=== PATIENT | male | born 1950 | race Caucasian/White ===

== ENCOUNTER 2016-08-18 01:20 | Observation (INO) | payer OTHER ==
[2016-08-18] VITALS (10 sets, daily range): BP systolic 121–189; BP diastolic 59–96; PULSE 46–72; RESP 16–22; TEMP 97.4–98.8; O2SAT 96–98
[~2016-08-18] VITALS: Ht 180.3 cm; Wt 78.0 kg
[2016-08-18] MEDS ORDERED: ASPIRIN 81 MG CHEW TAB PO ONE (03:00)
[2016-08-18] MEDS ORDERED: KETOROLAC TROMETHAMINE 30 MG/ML (IVP) VIAL IV PUSH ONE (03:00)
[2016-08-18] MEDS ORDERED: NITROGLYCERIN 0.4 MG SL 25 TABS/BTL SL ONE (03:00)
[2016-08-18] MEDS ORDERED: SODIUM CHLORIDE 0.9% FLUSH 10 ML FLUSH IVF PRN ×2 (03:00→05:15)
[2016-08-18] MEDS ORDERED: ATEN25TA PO (03:07)
[2016-08-18] MEDS ORDERED: ASPI81CH CHEW (03:07)
[2016-08-18] MEDS ORDERED: METF1000 PO (03:07)
[2016-08-18] MEDS ORDERED: LISI-515 PO (03:07)
--- NOTE | 2016-08-18 03:28 | PD ---
HPI Chief Complaint: Hypertension Time Seen by Provider: 02:57 Travel History International Travel<30 days: No Contact w/Intl Traveler<30days: No Traveled to known affect area: No History of Present Illness HPI 65-year-old male presents to the emergency department for complaint of chronic back pain neck pain chest pain and noting this morning left upper extremity pain. Patient has history of chronic back injury and neck injury with chronic pain syndrome. Patient also has history of hypertension CAD and previous stent placement. Patient states [facility] and they have told him to wear a c-collar for his neck pain. Patient denies any new upper extremity or lower extremity numbness tingling or weakness. No bladder or bowel dysfunction or saddle anesthesia. Patient does not have any chest pain at this time and left arm pain that was present earlier prior to arrival to the emergency department has resolved spontaneously. Patient does take aspirin daily. Patient is diabetic. Patient's had no injury or recent fall. Patient reports the majority of his pain is in the mid to lower back and worsens with movement. Patient states his pain is the worst when he is sitting upright while he is driving a vehicle. Patient states some of these pains are new. Patient reportedly was encouraged to come to the emergency department by the [facility] for his complaints. Patient has taken no medication for her symptom relief. [facility] Past Medical History Narrative Medical CAD OH cardiac catheterization with stent hypertension diabetes chronic back pain cholecystectomy tobaccoism; nursing notes reviewed Cardiac Catheterization: Yes (X2) Diabetes: Yes Patient Takes Glucophage: Yes (6/1 AM) Hypertension: Yes Medical other: Yes (CHRONIC BACK PROBLEMS) Immunizations Current: Yes Myocardial Infarction: Yes Past Surgical History Cholecystectomy: Yes Neurologic Surgery: Yes (L5 L6) Social History Alcohol Use: No Tobacco Use: Yes Substance Use: No Allergies-Medications (Allergen,Severity, Reaction): Coded Allergies: No Known Allergies (Unverified , 08/18/16) Reported Meds & Prescriptions Reported Meds & Active Scripts Active Reported Aspirin 81 Mg Chew 81 Mg CHEW DAILY Atenolol 25 Mg Tab 12.5 Mg PO DAILY Lisinopril 20 Mg Tab 20 Mg PO DAILY Metformin (Metformin HCl) 1,000 Mg Tab 1,000 Mg PO BIDPC With meals Review of Systems Except as stated in HPI: all other systems reviewed are Neg General / Constitutional: No: Fever, Chills HENT: No: Congestion Cardiovascular: Positive: Chest Pain or Discomfort, No: Diaphoresis, Syncope, Dyspnea on exertion, Edema Respiratory: No: Shortness of Breath Gastrointestinal: No: Nausea, Abdominal Pain Genitourinary: No: Flank Pain Musculoskeletal: Positive: Myalgias, Arthralgias, Pain, No: Limited ROM, Edema Skin: No Rash Neurologic: No: Weakness, Dizziness, Syncope, Focal Abnormalities, Coordination Problem, Paresthesia Psychiatric: No: Anxiety Hematologic/Lymphatic: No: Easy Bruising Physical Exam Narrative GENERAL: Well-developed well-nourished male in no acute distress no respiratory distress; GCS 15 SKIN: Warm and dry. HEAD: Atraumatic. Normocephalic. EYES: Pupils equal and round. No scleral icterus. No injection or drainage. ENT: No nasal bleeding or discharge. Mucous membranes pink and moist. NECK: Trachea midline. No JVD. CARDIOVASCULAR: Regular rate and rhythm. Radial and dorsalis pedis pulses 2+ to palpation. RESPIRATORY: No accessory muscle use. Clear to auscultation. Breath sounds equal bilaterally. GASTROINTESTINAL: Abdomen soft, non-tender, nondistended. Hepatic and splenic margins not palpable. MUSCULOSKELETAL: Extremities without clubbing, cyanosis, or edema. No obvious deformities. Tenderness to palpation along the lower thoracic and upper lumbar spine without bony step-off. Negative straight leg raising. No flank pain bilaterally. NEUROLOGICAL: Awake and alert. No obvious cranial nerve deficits. Motor grossly within normal limits. Five out of 5 muscle strength in the arms and legs. Normal speech. PSYCHIATRIC: Appropriate mood and affect; insight and judgment normal. Data Data Last Documented VS Vital Signs Date Time Temp Pulse Resp B/P Pulse Ox O2 Delivery O2 Flow Rate FiO2 08/18/16 04:17 16 08/18/16 02:24 58 189/88 98 Room Air 08/18/16 01:21 98.8 Orders Electrocardiogram (08/18/16 ) Electrocardiogram (08/18/16 02:58) Ckmb (Isoenzyme) Profile (08/18/16 02:58) Complete Blood Count With Diff (08/18/16 02:58) Comprehensive Metabolic Panel (08/18/16 02:58) Magnesium (Mg) (08/18/16 02:58) Prothrombin Time / Inr (Pt) (08/18/16 02:58) Act Partial Throm Time (Ptt) (08/18/16 02:58) Troponin I (08/18/16 02:58) Lipase (08/18/16 02:58) Chest, Single Ap (08/18/16 02:58) Ecg Monitoring (08/18/16 02:58) Bilateral Bp Monitoring (08/18/16 02:58) Iv Access Insert/Monitor (08/18/16 02:58) Oximetry (08/18/16 02:58) Oxygen Administration (08/18/16 02:58) Aspirin Chew (Aspirin Chew) (08/18/16 03:00) Sodium Chloride 0.9% Flush (Ns Flush) (08/18/16 03:00) Nitroglycerin Sl (Nitrostat Sl) (08/18/16 03:00) Sodium Chlor 0.9% 1000 Ml Inj (Ns 1000 M (08/18/16 03:00) Spine, Thoracic-Ap/Lat/Sw(3vw) (08/18/16 ) Ketorolac Inj (Toradol Inj) (08/18/16 03:00) Labs Laboratory Tests Test 08/18/16 03:00 White Blood Count 11.3 TH/MM3 Red Blood Count 4.52 MIL/MM3 Hemoglobin 14.0 GM/DL Hematocrit 41.5 % Mean Corpuscular Volume 91.8 FL Mean Corpuscular Hemoglobin 31.0 PG Mean Corpuscular Hemoglobin 33.8 % Concent Red Cell Distribution Width 14.5 % Platelet Count 200 TH/MM3 Mean Platelet Volume 10.9 FL Neutrophils (%) (Auto) 66.4 % Lymphocytes (%) (Auto) 23.0 % Monocytes (%) (Auto) 8.2 % Eosinophils (%) (Auto) 1.9 % Basophils (%) (Auto) 0.5 % Neutrophils # (Auto) 7.5 TH/MM3 Lymphocytes # (Auto) 2.6 TH/MM3 Monocytes # (Auto) 0.9 TH/MM3 Eosinophils # (Auto) 0.2 TH/MM3 Basophils # (Auto) 0.1 TH/MM3 CBC Comment DIFF FINAL Differential Comment Prothrombin Time 10.5 SEC Prothromb Time International 1.0 RATIO Ratio Activated Partial 27.3 SEC Thromboplast Time Sodium Level 143 MEQ/L Potassium Level 4.0 MEQ/L Chloride Level 107 MEQ/L Carbon Dioxide Level 27.5 MEQ/L Anion Gap 9 MEQ/L Blood Urea Nitrogen 17 MG/DL Creatinine 0.81 MG/DL Estimat Glomerular Filtration 96 ML/MIN Rate Random Glucose 102 MG/DL Calcium Level 8.6 MG/DL Magnesium Level 2.3 MG/DL Total Bilirubin 0.2 MG/DL Aspartate Amino Transf 13 U/L (AST/SGOT) Alanine Aminotransferase 20 U/L (ALT/SGPT) Alkaline Phosphatase 69 U/L Total Creatine Kinase 88 U/L Troponin I 0.02 NG/ML Total Protein 6.9 GM/DL Albumin 3.3 GM/DL Lipase 141 U/L [facility] Medical Decision Making Medical Screen Exam Complete: Yes Emergency Medical Condition: Yes Medical Record Reviewed: Yes Interpretation(s) EKG: Sinus bradycardia rate [address] elevation or injury pattern change noted Differential Diagnosis Back pain, degenerative disc disease,HNP, chest pain, ACS, OH, uncontrolled hypertension, musculoskeletal pain, dissection, abdominal aortic aneurysm, UTI, ; no findings to suggest cauda equina syndrome Narrative Course Patient with long-standing history of chronic pain syndrome and cardiac disease with hypertension; patient administered aspirin and sublingual nitroglycerin times one maintenance IV fluids normal saline Patient administered Toradol 30 mg IV Patient resting comfortably waiting for lab results Patient reports after medication his pain is significantly reduced and voicing no complaints Lab values found to be grossly within normal range however in view of patient's history of CAD and report that this morning he did have an episode of chest pain with left upper extremity pain will admit to chest pain center per chest pain center protocol; patient has noted to have episodes of sinus bradycardia 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 Patient does take atenolol. Patient reports he has not had any change in the dosage of his atenolol. Physician Communication Physician Communication discussed with [facility] service --> [facility] Diagnosis Primary Impression: Chest pain Qualified Code: R07.2 - Precordial pain Additional Impression: Chronic back pain Qualified Code: M54.6 - Chronic midline thoracic back pain Admitting Information Admitting Physician Requests: Gabriela Haider MD Aug 18, 2016 03:28
[2016-08-18] MEDS: SODIUM CHLOR 0.9% 1000 ML INJ 1,000 ML IV SCH ×2 (03:33→13:00)
[2016-08-18 03:39] LABS: AUTOMATED NEUTROPHIL # 7.5 TH/MM3 (1.8-7.7); BASOPHIL # 0.1 TH/MM3 (0-0.2); BASOPHIL % 0.5 % (0.0-2.0); EOSINOPHIL # 0.2 TH/MM3 (0-0.4); EOSINOPHIL % 1.9 % (0.0-4.0); HEMATOCRIT 41.5 % (39.0-51.0); HEMO FLAGS DIFF FINAL; LYMPHOCYTE # 2.6 TH/MM3 (1.0-4.8); MEAN CELL VOLUME 91.8 FL (80.0-100.0); MEAN CORPUSCULAR HGB CONC 33.8 % (32.0-36.0); MONO % 8.2 % (0.0-8.0); NEUT % 66.4 % (16.0-70.0); PLATELET COUNT 200 TH/MM3 (150-450); RED BLOOD COUNT 4.52 MIL/MM3 (4.50-5.90); RED CELL DISTRIBUTION WIDTH 14.5 % (11.6-17.2); WHITE BLOOD COUNT 11.3 TH/MM3 (4.0-11.0)
[2016-08-18 03:49] LABS: APTT (PATIENT) 27.3 SEC (24.3-30.1); PROTHROMBIN TIME - PATIENT 10.5 SEC (9.8-11.6)
--- NOTE | 2016-08-18 04:01 | RADRPT ---
EXAM DATE/TIME: 08/18/2016 03:22 [facility] COMPARISON: No previous studies available for comparison. INDICATIONS : Chronic pain and spasms to upper back and neck. MEDICAL HISTORY : Hypertension. Myocardial infarction. Diabetes mellitus type II. Cardiac cath SURGICAL HISTORY : Cholecystectomy. ENCOUNTER: Initial ACUITY: 1 day PAIN SCORE: 6/10 LOCATION: Bilateral chest FINDINGS: A single view of the chest demonstrates the lungs to be symmetrically aerated without evidence of mas s, infiltrate or effusion. The cardiomediastinal contours are unremarkable. Osseous structures are intact. CONCLUSION: 1. No acute cardiopulmonary disease. Artis Madera MD on August 18, 2016 at 3:59 Board Certified Radiologist. This report was verified electronically.
--- NOTE | 2016-08-18 04:02 | RADRPT ---
EXAM DATE/TIME: 08/18/2016 03:23 [facility] COMPARISON: No previous studies available for comparison. INDICATIONS : Chronic pain and spasms to upper back and neck. MEDICAL HISTORY : Hypertension. Diabetes mellitus type II. Myocardial infarction. Cardiac cath SURGICAL HISTORY : Cholecystectomy. ENCOUNTER: Initial ACUITY: 1 day PAIN SCORE: 6/10 LOCATION: Bilateral Thoracic spine FINDINGS: The vertebral bodies are normal in alignment on the lateral view. There is multilevel degenerative ch marlys throughout the spine. There is no evidence of acute fracture. Bony mineralization is normal. CONCLUSION: 1. Mild degenerative changes as described above. There is no evidence of acute fracture. Artis Madera MD on August 18, 2016 at 4:00 Board Certified Radiologist. This report was verified electronically.
[2016-08-18 04:06] LABS: ALT (GPT) 20 U/L (12-78); ANION GAP 9 MEQ/L (5-15); AST (GOT) 13 U/L (15-37); BICARBONATE 27.5 MEQ/L (21.0-32.0); BLOOD UREA NITROGEN 17 MG/DL (7-18); CHLORIDE 107 MEQ/L (98-107); GLOMERULAR FILTRATION RATE 96 ML/MIN (>89); MAGNESIUM 2.3 MG/DL (1.5-2.5); SODIUM (NA) 143 MEQ/L (136-145)
[2016-08-18 04:10] LABS: ALKALINE PHOSPHATASE 69 U/L (45-117); TOTAL BILIRUBIN ADULT 0.2 MG/DL (0.2-1.0)
[2016-08-18 04:11] LABS: CREATINE KINASE 88 U/L (39-308)
[2016-08-18] MEDS ORDERED: NITROGLYCERIN 0.4 MG SL 25 TABS/BTL SL PRN (05:15)
[2016-08-18] MEDS ORDERED: SODIUM CHLORIDE 0.9% FLUSH 10 ML FLUSH PRN (05:15)
[2016-08-18] MEDS ORDERED: ACETAMINOPHEN 500 MG CPLT PO PRN (07:45)
[2016-08-18] MEDS ORDERED: ONDANSETRON HCL 4 MG/2 ML VIAL IV PRN (07:45)
[2016-08-18 07:49] LABS: CREATINE KINASE 71 U/L (39-308)
[2016-08-18] MEDS ORDERED: SODIUM CHLORIDE 0.9% FLUSH 10 ML FLUSH SCH (09:00)
[2016-08-18] MEDS ORDERED: SODIUM CHLORIDE 0.9% FLUSH 10 ML FLUSH IV FLUSH SCH (09:00)
[2016-08-18] MEDS ORDERED: ASPIRIN 325 MG TAB PO SCH (09:00)
--- NOTE | 2016-08-18 09:21 | HHI.HP ---
HPI Primary Care Physician [facility] Chief Complaint Worsening chronic back/neck pain History of Present Illness 65-year-old male with known coronary artery disease including 4 cardiac stents , diabetes, and chronic neck and back pain presents to emergency room for worsening chronic pain associated with left arm pain. Chronic back/neck pain began to worsen Sunday, he called [facility] day instructed him to go to the emergency room. He did not decide to come to the emergency room for further evaluation until early this morning. Describes back pain as "a heavy manhole cover is sitting on my back and under both shoulder blades." Breathing makes pain worse described as knives and stabbing when taking deep breath. No associated symptoms of nausea, vomiting, or diaphoresis. No known precipitating factors. Relieving factors with a "shot given in the emergency room" states after approximately 30-40 minutes pain improved. Left arm pain began while in ER waiting room. Location under her left arm from axillary area to elbow. Characterized as "hurting, not an ache or dull feeling." Left arm pain duration 30 minutes. He has not had any recent stress testing. Endorses situational stress regarding his who is ill. Also reports intermittent fluttering in chest episodes generally last 1 hour and occur while sitting. No known precipitating or relieving factors. No associated symptoms. Review of Systems General: Increased fatigue over past few months, relates this to taking care of his . No weakness, fever, chills, recent illness, or change in appetite HEENT: No CANAS, no vision changes CV: No CP or pressure. Endorses few weeks of heart "fluttering." Episodes generally last 1 hour and occur while sitting. Denies any concurrent lightheadedness, nausea, or loss of consciousness. RESP: No SOB, cough, wheeze, recent URI, or history of asthma. GI: No nausea, vomiting, bowel changes, diarrhea, constipation, pain. : No dysuria, urgency, frequency, no incontinence EXT: No lower leg edema, no paraesthesias, no weakness MS: Chronic back and neck pain, unable to move neck to right side chronic and unchanged. He has been encouraged to wear a neck collar provided by OR. NEURO: No change in difficulty with balance, LOC, or motor/sensory deficits PSYCH: No anxiety, depression. Endorses situational stress regarding his who is ill and is experiencing memory problems. SKIN: No rashes, no concerning lesions Past Family Social History Allergies: Coded Allergies: No Known Allergies (Unverified , 08/18/16) Past Medical History CAD, cardiac stents 4, chronic back and neck pain, diabetic Past Surgical History Cholecystectomy, L56 lumbar surgery Reported Medications Active Reported Aspirin 81 Mg Chew 81 Mg CHEW DAILY Atenolol 25 Mg Tab 12.5 Mg PO DAILY Lisinopril 20 Mg Tab 10 Mg PO DAILY Metformin (Metformin HCl) 1,000 Mg Tab 1,000 Mg PO BIDPC With meals Active Ordered Medications Current Medications Medications (Trade) Dose Ordered Sig/Cinthia Route Start Time Stop Time Status Last Admin (NS 1000 ml Inj) 1,000 ml @ 100 mls/hr Q10H IV 08/18/16 03:00 08/18/16 03:33 (NS Flush) 2 ml BID IV FLUSH 08/18/16 09:00 (NS Flush) 2 ml UNSCH PRN IVF 08/18/16 05:15 (Nitrostat Sl) 0.4 mg Q5M PRN SL 08/18/16 05:15 (Aspirin) 325 mg DAILY PO 08/18/16 09:00 08/18/16 09:12 (Tylenol) 500 mg Q4H PRN PO 08/18/16 07:45 (Zofran Inj) 4 mg Q6H PRN IV 08/18/16 07:45 Family History Father experienced "heart problems in his early 40s with total of 13 heart attacks." Social History Known diabetes. No known hypertension or hyperlipidemia. States he was taking a statin years ago although physicians have taken him off. He tolerated statin therapy well. Current smoker, smokes half pack daily for most of his adult life. Denies any alcohol or illegal drug use. Endorses active lifestyle, staying busy throughout day. No regular cardiovascular aerobic exercise. Past cardiac testing No recent stress testing. Has not seen stylist assistant since 2014. He has moved from [place] at that time. Total of times for cardiac stents. First cardiac catheterization 2003 states "2 stents placed in the front of my heart." 2009 second cardiac catheterization with [address] "back part of my heart." Symptoms of prior heart attack included chest tightness, short of breath, couldn 't talk, and a choking feeling. Physical Exam Vital Signs Vital Signs Date Time Temp Pulse Resp B/P Pulse Ox O2 Delivery O2 Flow Rate FiO2 08/18/16 07:58 97.4 08/18/16 07:53 46 20 141/79 96 08/18/16 07:46 98 21 08/18/16 06:37 49 08/18/16 05:20 97 08/18/16 05:12 97 Room Air 08/18/16 05:00 50 17 121/59 96 Room Air 08/18/16 04:17 16 08/18/16 04:17 16 08/18/16 04:00 50 22 132/73 97 Room Air 08/18/16 02:24 58 16 189/88 98 Room Air 08/18/16 01:21 98.8 72 16 185/96 98 Room Air Physical Exam GENERAL: Alert WN, WD, NAD, pleasant, occasional male HEAD: NC, AT NECK: Supple, no masses, trachea midline CV: RRR, without murmur, rub, gallop, no JVD, S1-S2 no S3-S4. No carotid bruits. RESP: Expiratory wheeze throughout bilateral, no crackles, rhonchi, symmetrical chest rise, nonlabored, able to speak in full sentences ABD: Soft, NT, ND, no masses, positive bowel tones BACK: No scoliosis EXT: Pulses +24, no dependent edema MS: Normal tone 4 extremities, nontender, no obvious deformities, limited range of motion when moving neck to right side NEURO: CN II through CN XII grossly intact, motor strength 5/5, gait WNL PSYCH: A+O 3, pleasant affect, appropriate speech, appropriate mood and affect , insight and judgment SKIN: Normal turgor, normal texture, no lesions, no rashes, brisk cap refill, even hair distribution Laboratory Laboratory Tests Test 08/18/16 08/18/16 03:00 06:45 White Blood Count 11.3 Red Blood Count 4.52 Hemoglobin 14.0 Hematocrit 41.5 Mean Corpuscular Volume 91.8 Mean Corpuscular Hemoglobin 31.0 Mean Corpuscular Hemoglobin 33.8 Concent Red Cell Distribution Width 14.5 Platelet Count 200 Mean Platelet Volume 10.9 Neutrophils (%) (Auto) 66.4 Lymphocytes (%) (Auto) 23.0 Monocytes (%) (Auto) 8.2 Eosinophils (%) (Auto) 1.9 Basophils (%) (Auto) 0.5 Neutrophils # (Auto) 7.5 Lymphocytes # (Auto) 2.6 Monocytes # (Auto) 0.9 Eosinophils # (Auto) 0.2 Basophils # (Auto) 0.1 CBC Comment DIFF FINAL Differential Comment Prothrombin Time 10.5 Prothromb Time International 1.0 Ratio Activated Partial 27.3 Thromboplast Time Sodium Level 143 Potassium Level 4.0 Chloride Level 107 Carbon Dioxide Level 27.5 Anion Gap 9 Blood Urea Nitrogen 17 Creatinine 0.81 Estimat Glomerular Filtration 96 Rate Random Glucose 102 Calcium Level 8.6 Magnesium Level 2.3 Total Bilirubin 0.2 Aspartate Amino Transf 13 (AST/SGOT) Alanine Aminotransferase 20 (ALT/SGPT) Alkaline Phosphatase 69 Total Creatine Kinase 88 71 Troponin I 0.02 LESS THAN 0.02 Total Protein 6.9 Albumin 3.3 Lipase 141 Result Diagram: 08/18/16 0300 08/18/16 0300 Imaging Last Impressions Chest X-Ray 08/18/16 0258 Signed Impressions: Service Date/Time: Thursday, August 18, 2016 03:22 - CONCLUSION: 1. No acute cardiopulmonary disease. Artis Madera MD Thoracic Spine X-Ray 08/18/16 0000 Signed Impressions: Service Date/Time: Thursday, August 18, 2016 03:23 - CONCLUSION: 1. Mild degenerative changes as described above. There is no evidence of acute fracture. Artis Madera MD Course EKGs Normal sinus bradycardia, normal axis, no ST or T-segment changes Assessment and Plan Assessment and Plan #1 Chest pain-admitted to chest pain center. Will be ruled out with 3 sets of EKGs and cardiac enzymes. Chemical stress test to follow with ruled out. Will be seen and evaluated by Dr. Jono Trejo. #2 History of CAD-continue aspirin and atenolol. Discussed importance of statin therapy for cardiac preventative properties, encouraged him to speak with PCP regarding restarting statin therapy. #3 Tobacco use-counseled on risk of tobacco use. Encouraged him to quit smoking. #4 Type 2 Diabetes-continue metformin #5 Chronic pain-continue to follow up with PCP at OR #6 Hypertension-continue lisinopril and continue to monitor. Liliam Singleton Aug 18, 2016 09:21
[2016-08-18] MEDS ORDERED: PILL SPLITTER OTHER PRN (09:30)
[2016-08-18 10:20] LABS: CREATINE KINASE 54 U/L (39-308)
[2016-08-18] MEDS ORDERED: REGADENOSON INJ 0.4 MG/5 ML SYR ONE (11:47)
--- NOTE | 2016-08-18 12:41 | TR ---
Date Performed: 08/18/2016 Time Performed: 11:51:11 DOCTOR: Jono Trejo DRUG LIST: CLINICAL HISTORY: REASON FOR TEST: REASON FOR ENDING: OBSERVATION: CONCLUSION: Lexiscan stress test was performed under standard four minute protocol. Radionuclid e was injected one minute prior to ending the test. No electrocardiographic abormalities were present to suggest ischemia. Nuclear imaging and interpretation are pending. COMMENTS:
--- NOTE | 2016-08-18 12:43 | EKG ---
Date Performed: 08/18/2016 Time Performed: 02:21:56 PTAGE: 65 years EKG: SINUS BRADYCARDIA BORDERLINE ECG NO PREVIOUS TRACING DOCTOR: Jono Trejo Interpretating Date/Time 08/18/2016 12:42:04
--- NOTE | 2016-08-18 12:43 | EKG ---
Date Performed: 08/18/2016 Time Performed: 06:40:51 PTAGE: 65 years EKG: SINUS BRADYCARDIA PROLONGED QT INTERVAL ABNORMAL ECG NO PREVIOUS TRACING DOCTOR: Jono Trejo Interpretating Date/Time 08/18/2016 12:41:32
--- NOTE | 2016-08-18 12:49 | EKG ---
Date Performed: 08/18/2016 Time Performed: 09:18:15 PTAGE: 65 years EKG: SINUS BRADYCARDIA PROLONGED QT INTERVAL ABNORMAL ECG PREVIOUS TRACING : 08/18/2016 06.40 Since previous tracing, no significant change noted DOCTOR: Jono Trejo Interpretating Date/Time 08/18/2016 12:47:49
--- NOTE | 2016-08-18 13:29 | RADRPT ---
EXAM DATE/TIME: 08/18/2016 11:07 [facility] COMPARISON: No previous studies available for comparison. INDICATIONS : Left chest pain radiating to left arm. Chronic back and neck pain. Angina. DOSE: 25.5 mCi Tc99m Myoview at stress. 8.8 mCi Tc99m Myoview at rest. 0.4 mg Lexiscan STRESS SYMPTOMS: None. EJECTION FRACTION: 47% MEDICAL HISTORY : Myocardial infarction. Diabetes mellitus type 2. Hypertension. SURGICAL HISTORY : Cholecystectomy. Coronary artery stent. ENCOUNTER: Initial ACUITY: 1 day PAIN SCALE: 6/10 LOCATION: Left chest TECHNIQUE: The patient underwent pharmacologic stress with infusion of prescribed dose. Continuous ECG tracing was monitored during stress. Gated SPECT imaging was performed after stress and conventional SPECT i maging was performed at rest. The examination was performed on a SPECT/CT scanner, both attenuation and non-corrected datasets were reviewed. FINDINGS: DISTRIBUTION: The maximum perfused segment at stress is in the inferior wall. PERFUSION STUDY: The pattern of perfusion at stress is within normal limits. GATED STUDY: There is intact wall motion and thickening without hypokinetic or dyskinetic segments. CONCLUSION: 1. Mild global hypokinesis with ejection fraction of 47%. 2. No reversible perfusion defects. No focal wall motion abnormalities. RISK CATEGORY: 2-Intermediate Risk. Hans Millard MD on August 18, 2016 at 13:25 Board Certified Radiologist. This report was verified electronically.
--- NOTE | 2016-08-18 14:24 | HHI.DCPOC ---
Discharge Care Plan Diagnosis: (1) Hypertension (2) Musculoskeletal chest pain (3) Hx of coronary artery disease (4) Chronic back pain Goals to Promote Your Health * To prevent worsening of your condition and complications * To maintain your health at the optimal level Directions to Meet Your Goals Take your medications as prescribed Follow your dietary instruction Follow activity as directed Keep your appointments as scheduled Take your immunizations and boosters as scheduled If your symptoms worsen call your PCP, if no PCP go to Urgent Care Center or Emergency Room Smoking is Dangerous to Your Health. Avoid second hand smoke Call the 24-hour hour crisis hotline for domestic abuse at Liliam Singleton Aug 18, 2016 14:24
[2016-08-18] MEDS ORDERED: metFORMIN HCL 500 MG TAB PO SCH (18:00)
[2016-08-19] MEDS ORDERED: ATENOLOL 25 MG TAB PO SCH (09:00)
== END 2016-08-18 15:02 | disposition home or self-care (01) ==
LOC: NEPC 01:20 → NEDA 05:06 → NEPGCP 06:34
DX: R07.9 Chest pain, unspecified (principal); I10 Essential (primary) hypertension; M54.9 Dorsalgia, unspecified; M79.602 Pain in left arm; G89.4 Chronic pain syndrome; I25.10 Atherosclerotic heart disease of native coronary artery without angina pectoris; M54.2 Cervicalgia; M54.6 Pain in thoracic spine; E11.9 Type 2 diabetes mellitus without complications; Z95.5 Presence of coronary angioplasty implant and graft; F17.210 Nicotine dependence, cigarettes, uncomplicated; Z79.84 Long term (current) use of oral hypoglycemic drugs
CPT/HCPCS: 71010; 72072; 78452; 80053; 82550; 83690; 83735; 84484; 85025; 85610; 85730; 93005; 93017; 96361; 96374; 99285; A9502; G0378; J1885; J2785; J7030

== ENCOUNTER 2017-02-02 12:29 | Inpatient (IN) | payer OTHER ==
[2017-02-02] VITALS (15 sets, daily range): BP systolic 137–227; BP diastolic 82–114; PULSE 58–112; RESP 16–36; TEMP 97.7–98.7; O2SAT 89–99
[~2017-02-02] VITALS: Ht 175.3 cm; Wt 80.6 kg
[~2017-02-02 12:29] MED LIST: ASPI-516 CHEW; ATEN25TA PO; LISI-515 PO; METF1000 PO
--- NOTE | 2017-02-02 12:45 | PD ---
HPI Chief Complaint: Respiratory Symptoms Time Seen by Provider: 12:40 Travel History International Travel<30 days: No Contact w/Intl Traveler<30days: No Traveled to known affect area: No History of Present Illness HPI Patient is a 66-year-old male presents emergency department for evaluation of shortness of breath. He states that his friend was recently diagnosed with shortness of breath and had to be life flighted to [facility] because he had swelling of his throat. He states he doesn't think that that happened to him. He does have a history of coronary artery disease and multiple stents placed. He states that his been short of breath for the past few hours and rapidly getting worse. Denies a history of congestive heart failure, denies a history of prolonged stasis. PFSH Past Medical History Cardiac Catheterization: Yes (X2, 4 stents) Cardiovascular Problems: Yes Diabetes: Yes Hypertension: Yes Immunizations Current: Yes Myocardial Infarction: Yes Past Surgical History Cholecystectomy: Yes Neurologic Surgery: Yes (L5 L6) Social History Alcohol Use: No Tobacco Use: Yes Substance Use: No Allergies-Medications (Allergen,Severity, Reaction): Coded Allergies: bee venom protein (honey bee) (Verified Allergy, Severe, Swelling, ) Reported Meds & Prescriptions Reported Meds & Active Scripts Active Reported Zoloft (Sertraline HCl) 25 Mg Tab 25 Mg PO DAILY Aspirin 81 Mg Chew 81 Mg CHEW DAILY Atenolol 25 Mg Tab 12.5 Mg PO DAILY Metformin (Metformin HCl) 1,000 Mg Tab 1,000 Mg PO BIDPC With meals Review of Systems Except as stated in HPI: all other systems reviewed are Neg Physical Exam Narrative GENERAL: Well-developed well-nourished, tachycardic and tachypneic. SKIN: Focused skin assessment warm/dry. HEAD: Atraumatic. Normocephalic. EYES: Pupils equal and round. No scleral icterus. No injection or drainage. ENT: No nasal bleeding or discharge. Mucous membranes pink and moist. NECK: Trachea midline. No JVD. CARDIOVASCULAR: Tachycardic with regular rhythm.. No murmur appreciated. 2+ bilateral equal pulses in all 4 extremities. RESPIRATORY: No accessory muscle use bibasilar rales. Breath sounds equal bilaterally. Tachypneic with increased work of breathing and some mild retractions. GASTROINTESTINAL: Abdomen soft, non-tender, nondistended. Hepatic and splenic margins not palpable. MUSCULOSKELETAL: No obvious deformities. No clubbing. No cyanosis. No edema. NEUROLOGICAL: Awake and alert. No obvious cranial nerve deficits. Motor grossly within normal limits. Normal speech. PSYCHIATRIC: Appropriate mood and affect; insight and judgment normal. Data Data Last Documented VS Vital Signs Date Time Temp Pulse Resp B/P (MAP) Pulse Ox O2 Delivery O2 Flow Rate FiO2 02/02/17 14:20 58 16 140/83 (102) 93 BiPAP 02/02/17 13:20 50 02/02/17 13:00 4.50 02/02/17 12:32 98.0 Orders Orders Electrocardiogram (02/02/17 12:44) B-Type Natriuretic Peptide (02/02/17 12:44) Ckmb (Isoenzyme) Profile (02/02/17 12:44) Complete Blood Count With Diff (02/02/17 12:44) Comprehensive Metabolic Panel (02/02/17 12:44) Magnesium (Mg) (02/02/17 12:44) Prothrombin Time / Inr (Pt) (02/02/17 12:44) Act Partial Throm Time (Ptt) (02/02/17 12:44) Troponin I (02/02/17 12:44) Chest, Single Ap (02/02/17 12:44) Ecg Monitoring (02/02/17 12:44) Bilateral Bp Monitoring (02/02/17 12:44) Iv Access Insert/Monitor (02/02/17 12:44) Oximetry (02/02/17 12:44) Oxygen Administration (02/02/17 12:44) Sodium Chloride 0.9% Flush (Ns Flush) (02/02/17 12:45) Blood Gas Venous (Vbg) (02/02/17 12:44) Nicardipine Inj (Cardene Inj) (02/02/17 13:15) Resp Bipap / Cpap Non Invas Vt (02/02/17 ) Admit To Inpatient (02/02/17 ) Code Status (02/02/17 14:29) Vital Signs (Adult) NATY.Q1H (02/02/17 14:29) Activity Bed Rest (02/02/17 14:29) Elevate Head Of Bed (02/02/17 14:29) Neuro Checks . ORDERED (02/02/17 14:29) Pantoprazole Inj (Protonix Inj) (02/02/17 15:00) Albuterol-Ipratropium Neb (Duoneb Neb) (02/02/17 16:00) Albuterol-Ipratropium Neb (Duoneb Neb) (02/02/17 14:30) Complete Blood Count With Diff (02/03/17 04:00) Comprehensive Metabolic Panel (02/03/17 04:00) Sputum Culture And Gram Stain (02/02/17 14:29) Business Data Analyst / Telemetry NATY.Q8H (02/02/17 14:29) Heparin Inj (Heparin Inj) (02/02/17 15:00) ^ Initiate Protocol (02/02/17 14:29) Instruction (02/02/17 14:29) [facility] [place] Information (02/02/17 14:30) Chlorhexidine 2% Cloth (Chlorhexidine 2% (02/03/17 04:00) Chlorhexidine 2% Cloth (Chlorhexidine 2% (02/02/17 14:30) Mrsa Pcr Surveillance (02/02/17 14:29) Docusate Sodium-Senna (Cristine-Colace) (02/02/17 21:00) Magnesium Hydroxide Liq (Milk Of Magnesi (02/02/17 14:30) Sennosides (Senokot) (02/02/17 14:30) Bisacodyl Supp (Dulcolax Supp) (02/02/17 14:30) Lactulose Liq (Lactulose Liq) (02/02/17 14:30) Inpatient Certification (02/02/17 ) Bumetanide Inj (Bumex Inj) (02/02/17 14:45) Echo 2d Comp With Doppler (02/02/17 ) Blood Glucose Goal (Criteria) (02/02/17 14:32) Hypoglycemia 70 Mg/Dl Or < (02/02/17 14:32) Notify Dr: Other (02/02/17 14:32) Dextrose 50% In Cristofer (Vial) Inj (D50w (Vi (02/02/17 14:45) Glucagon Inj (Glucagon Inj) (02/02/17 14:45) Insulin Human Reg Supp Scale (Novolin R (02/02/17 15:00) Aspirin Chew (Aspirin Chew) (02/02/17 15:00) Urinalysis - C+S If Indicated (02/02/17 14:34) Complete Blood Count With Diff (02/03/17 06:00) Basic Metabolic Panel (Bmp) (02/03/17 06:00) Chest, Single Ap (02/03/17 ) Furosemide Inj (Lasix Inj) (02/02/17 21:00) Troponin I (02/02/17 19:00) Troponin I (02/03/17 01:00) Admit To Inpatient (02/02/17 ) Admit Order (Ed Use Only) (02/02/17 ) Us Abdomen Liver (02/02/17 ) Labs Laboratory Tests Test 02/02/17 12:56 02/02/17 13:05 White Blood Count 12.8 TH/MM3 Red Blood Count 3.55 MIL/MM3 Hemoglobin 10.8 GM/DL Hematocrit 33.0 % Mean Corpuscular Volume 92.8 FL Mean Corpuscular Hemoglobin 30.4 PG Mean Corpuscular Hemoglobin Concent 32.7 % Red Cell Distribution Width 14.8 % Platelet Count 366 TH/MM3 Mean Platelet Volume 9.4 FL Neutrophils (%) (Auto) 81.9 % Lymphocytes (%) (Auto) 11.7 % Monocytes (%) (Auto) 5.3 % Eosinophils (%) (Auto) 0.4 % Basophils (%) (Auto) 0.7 % Neutrophils # (Auto) 10.4 TH/MM3 Lymphocytes # (Auto) 1.5 TH/MM3 Monocytes # (Auto) 0.7 TH/MM3 Eosinophils # (Auto) 0.0 TH/MM3 Basophils # (Auto) 0.1 TH/MM3 CBC Comment DIFF FINAL Differential Comment Prothrombin Time 12.2 SEC Prothromb Time International Ratio 1.1 RATIO Activated Partial Thromboplast Time 28.4 SEC Blood Urea Nitrogen 46 MG/DL Creatinine 1.37 MG/DL Random Glucose 136 MG/DL Total Protein 8.7 GM/DL Albumin 2.2 GM/DL Calcium Level 8.1 MG/DL Magnesium Level 2.5 MG/DL Alkaline Phosphatase 105 U/L Aspartate Amino Transf (AST/SGOT) 52 U/L Alanine Aminotransferase (ALT/SGPT) 82 U/L Total Bilirubin 0.4 MG/DL Sodium Level 138 MEQ/L Potassium Level 5.1 MEQ/L Chloride Level 108 MEQ/L Carbon Dioxide Level 20.4 MEQ/L Anion Gap 10 MEQ/L Estimat Glomerular Filtration Rate 52 ML/MIN Total Creatine Kinase 91 U/L Troponin I 0.03 NG/ML B-Type Natriuretic Peptide 1528 PG/ML Blood Gas Puncture Site RN Blood Gas Patient Temperature 98.6 Venous Blood pH 7.35 Venous Blood Partial Pressure CO2 40 mmHg Venous Blood Partial Pressure O2 22 mmHg Venous Blood HCO3 22 mmol/L Venous Blood Oxygen Saturation 30 % Venous Blood Oxygen Content 4.4 Vol % Venous Blood Base Excess -3.1 mmol/L Oxygen Delivery Device NASAL CANNULA Blood Gas Liter Flow 4 L/M MDM Medical Decision Making Medical Screen Exam Complete: Yes Emergency Medical Condition: Yes Differential Diagnosis Flash pulmonary edema, CHF, ACS, AMI. Narrative Course Patient roomed in the emergency department, initial saturation 86 on room air, was started on 4 L nasal cannula saturation teresa to 95, bibasilar rales were noted. Hypertensive. Signs symptoms consistent with acute pulmonary edema, chest x-ray confirms. Cardene drip started we'll continue to monitor. The patient doing better with a blood pressure and saturating only 90% on now 5 L nasal cannula he was placed on BiPAP, tolerating BiPAP fairly well at 5/10 and 50%. With these settings is satting between 92 and 93%. Given his increased oxygen requirement we'll discuss with the stretching machine operator on-call. Bumex given by stretching machine operator, doing much better on BiPAP, Cardene drip was initiated and good response in blood pressure. Overall patient is improving slowly but still requiring significant oxygen by BiPAP. Dr. Guevara accepted the patient. Critical Care Narrative Aggregate critical care time was 35 minutes. Time to perform other separately billable procedures was not included in the critical care time. My time did not include minutes spent treating any other patients simultaneously or on activities that did not directly contribute to the patient's treatment. The services I provided to this patient were to treat and/or prevent clinically significant deterioration that could result in: , disability, organ failure] I provided critical care services requiring my management, as noted below: Chart data review, documentation time, medication orders and management, vital sign assessments/reviewing monitor data, ordering and reviewing lab tests, ordering and interpreting/reviewing x-rays and diagnostic studies, care of the patient and discussion of the patient with the admitting physicians. Diagnosis Primary Impression: Acute pulmonary edema Additional Impression: Hypertensive emergency Admitting Information Admitting Physician Requests: Admit Condition: Stable Ernie Giles MD Feb 02, 2017 12:45
[2017-02-02] MEDS ORDERED: ZOLO25TA PO (12:52)
[2017-02-02 13:14] LABS: AUTOMATED NEUTROPHIL # 10.4 TH/MM3 (1.8-7.7); BASOPHIL # 0.1 TH/MM3 (0-0.2); BASOPHIL % 0.7 % (0.0-2.0); EOSINOPHIL % 0.4 % (0.0-4.0); HEMO FLAGS DIFF FINAL; LYMPH % 11.7 % (9.0-44.0); LYMPHOCYTE # 1.5 TH/MM3 (1.0-4.8); MEAN CELL VOLUME 92.8 FL (80.0-100.0); MEAN CORPUSCULAR HEMOGLOBIN 30.4 PG (27.0-34.0); MEAN CORPUSCULAR HGB CONC 32.7 % (32.0-36.0); MONO % 5.3 % (0.0-8.0); NEUT % 81.9 % (16.0-70.0); PLATELET COUNT 366 TH/MM3 (150-450); RED BLOOD COUNT 3.55 MIL/MM3 (4.50-5.90); RED CELL DISTRIBUTION WIDTH 14.8 % (11.6-17.2); WHITE BLOOD COUNT 12.8 TH/MM3 (4.0-11.0)
[2017-02-02 13:15] LABS: BLOOD GAS VENOUS BASE EXCESS -3.1 mmol/L (-2-2); BLOOD GAS VENOUS HCO3 22 mmol/L (22-26); BLOOD GAS VENOUS O2 CONTENT 4.4 Vol % (9.0-17.0); BLOOD GAS VENOUS O2 HGB SAT 30 % (70-76); BLOOD GAS VENOUS PCO2 40 mmHg (44-48); BLOOD GAS VENOUS PO2 22 mmHg (35-40); BLOOD GAS VENOUS pH 7.35 (7.360-7.400); CRITICAL VALUE YES; DRAW SITE RN; LITER FLOW 4 L/M; OXYGEN DEVICE NASAL CANNULA; TEMP CORR TO 98.6
[2017-02-02 13:16] LABS: STAT YES
--- NOTE | 2017-02-02 13:21 | RADRPT ---
EXAM DATE/TIME: 02/02/2017 12:59 [facility] COMPARISON: CHEST SINGLE AP, August 18, 2016, 3:22. INDICATIONS : Chest pain. Patient complains of shortness of breath, swollen ankles,weakness, cough, and vomiting. MEDICAL HISTORY : Hypertension. Myocardial infarction. Diabetes mellitus type II. SURGICAL HISTORY : Cholecystectomy. Cardiac cath. ENCOUNTER: Initial ACUITY: 3 days PAIN SCORE: 5/10 LOCATION: Bilateral chest FINDINGS: A single AP erect portable view of the chest was obtained and demonstrates new alveolar infiltrates i n the perihilar regions and both lung bases. This is more confluent in the right lung base. There is mild apparent blunting of the costophrenic angles. The heart size is at the upper limits of normal. A therosclerotic changes are present in the aorta. The bony thorax appears intact with overlying electr ocardiogram leads. CONCLUSION: New bilateral alveolar infiltrates most consistent with pulmonary edema. This may be cardiogenic or noncardiogenic in origin. Questionable small effusions. Mahendra Palacios MD on February 02, 2017 at 13:18 Board Certified Radiologist. This report was verified electronically.
[2017-02-02 13:22] LABS: APTT (PATIENT) 28.4 SEC (24.3-30.1); INTERNATIONAL NORMALIZED RATIO 1.1 RATIO; PROTHROMBIN TIME - PATIENT 12.2 SEC (9.8-11.6)
[2017-02-02] MEDS: niCARdipine INJ 25 MG in SODIUM CHLOR 0.9% 250 ML INJ 240 ML IV PRN ×5 (13:33→23:58)
[2017-02-02 13:53] LABS: ALKALINE PHOSPHATASE 105 U/L (45-117); ALT (GPT) 82 U/L (12-78); ANION GAP 10 MEQ/L (5-15); AST (GOT) 52 U/L (15-37); BICARBONATE 20.4 MEQ/L (21.0-32.0); BLOOD UREA NITROGEN 46 MG/DL (7-18); CHLORIDE 108 MEQ/L (98-107); GLOMERULAR FILTRATION RATE 52 ML/MIN (>89); MAGNESIUM 2.5 MG/DL (1.5-2.5); POTASSIUM 5.1 MEQ/L (3.5-5.1); SODIUM (NA) 138 MEQ/L (136-145); TOTAL BILIRUBIN ADULT 0.4 MG/DL (0.2-1.0)
[2017-02-02 13:54] LABS: CREATINE KINASE 91 U/L (39-308)
[2017-02-02] MEDS ORDERED: BISACODYL 10 MG SUPP RECTAL PRN (14:30)
[2017-02-02] MEDS ORDERED: RESP: ALBUTEROL 2.5 MG/IPRATROPIUM 0.5 MG NEB (PRN) INH (14:30)
[2017-02-02] MEDS ORDERED: LACTULOSE SYRUP 20 GM/30 ML CUP PO PRN (14:30)
[2017-02-02] MEDS ORDERED: MAGNESIUM HYDROXIDE SUSP 30 ML CUP PO PRN (14:30)
[2017-02-02] MEDS ORDERED: MISCELLANEOUS NURSING INFORMATION XX SCH (14:30)
[2017-02-02] MEDS ORDERED: SENNOSIDES 8.6 MG TAB PO PRN (14:30)
[2017-02-02] MEDS ORDERED: CHLORHEXIDINE GLUCONATE 2 % 1 PACK (2 CLOTHS) TOP PRN (14:30)
[2017-02-02] MEDS ORDERED: BUMETANIDE INJ 1 MG/4 ML VIAL IV PUSH ONE (14:45)
[2017-02-02] MEDS ORDERED: DEXTROSE 50% IN WATER 50 ML VIAL(D50) IV PUSH PRN (14:45)
[2017-02-02] MEDS ORDERED: GLUCAGON 1 MG/ML VIAL OTHER PRN (14:45)
[2017-02-02] MEDS: INSULIN NovoLIN REGULAR SUPPLEMENTAL SCALE SQ SCH ×3 (15:00→22:27)
[2017-02-02] MEDS: PANTOPRAZOLE SODIUM 40 MG VIAL IV PUSH SCH (15:08)
[2017-02-02] MEDS: HEPARIN SODIUM - SQ 10,000 UNITS/ML VIAL SQ SCH (15:08)
[2017-02-02] MEDS: ASPIRIN 81 MG CHEW TAB CHEW SCH (15:08)
--- NOTE | 2017-02-02 15:17 | MH ---
cc: CLAUDINE AGUILAR M.D. DATE OF ADMISSION: 02/02/2017 DATE OF : 1950 HISTORY OF PRESENT ILLNESS The patient is a 66-year-old male with past medical history of coronary artery disease with previous stents, CHF, diabetes mellitus, hypertension, who presented to [facility] ED with a two-day history of progressive worsening shortness of breath. In addition, the patient reports a productive cough with yellow phlegm and edema of his ankles. The patient also reports orthopnea, however, he denies any PND, nausea or vomiting. He has not seen his instructional material director for a long time. The patient is an active smoker where he smokes 10-15 cigarettes per day and has been a smoker for over 50 years. He denies any use of oxygen or bronchodilators at home. On arrival to the ED he was hypertensive with a blood pressure 227/114. Chest x-ray in the ER showed bilateral alveolar infiltrates consistent with pulmonary edema. His laboratory data is significant for elevated BNP at 1528, troponin 0.03 and creatinine 1.37. In the ED he was placed on a Cardene drip and BiPAP. His current blood pressure is 140/83 with saturation 93% and pulse 64. PAST MEDICAL HISTORY 1. Coronary artery disease. 2. CHF. 3. Diabetes. 4. Hypertension. PAST SURGICAL HISTORY 1. Previous cholecystectomy. 2. Previous back surgeries. 3. Previous coronary stent placements. ALLERGIES No known drug allergies. SOCIAL HISTORY Active smoker where he smokes 10-15 cigarettes per day and has been a smoker for 50+ years. He is a non-drinker. FAMILY HISTORY Noncontributory. MEDICATIONS Reported medications: 1. Aspirin. 2. Atenolol. 3. Metformin. 4. Zoloft. REVIEW OF SYSTEMS As per HPI. The rest of the review of systems is unremarkable. PHYSICAL EXAMINATION GENERAL: A 66-year-old male on a BiPAP in mild respiratory distress. VITAL SIGNS: Temperature 98.0, pulse 64, blood pressure 140/83 currently, saturation 93% on BiPAP 10/5 with 50% FIO2. HEENT: Atraumatic, normocephalic. Pupils equal, round and reactive to light and accommodation. Extraocular muscles are intact. Conjunctiva pink. Non-icteric sclera. Oral mucosa within normal. NECK: Supple. No JVD, adenopathy or thyromegaly. Trachea is midline. CARDIOVASCULAR: Regular rate and rhythm. Normal S1, S2. No murmurs, rubs or gallops noted. PULMONARY: Bilateral equal entry with coarse breath sounds and crackles at the bases. No wheezing. ABDOMEN: Soft, nontender, no distention. Positive bowel sounds. EXTREMITIES: No cyanosis or clubbing. Trace edema noted. NEUROLOGIC: No focal sensory deficit. LABORATORY DATA Sodium 138, potassium 5.1, chloride 108, CO2 20, BUN 46, creatinine 1.37, glucose 136, AST 52, ALT 82, alk phos 105, total bilirubin 0.4, BNP 1528, albumin 2.2, total protein 8.7. WBC 12.8, hemoglobin 10.8, hematocrit 33, platelet count 366. INR 1.1, PT 12.2, PTT 28.4. RADIOGRAPHIC DATA Chest x-ray showed pulmonary edema. IMPRESSION 1. Acute respiratory failure. 2. CHF decompensation. 3. Hypertensive emergency. 4. Acute kidney injury. 5. Elevated liver enzymes. 6. Leukocytosis, which likely is stress related. 7. Diabetes mellitus. 8. Anemia. 9. History of coronary artery disease. 10. Active tobacco use. PLAN/RECOMMENDATIONS 1. Monitor neuro status closely and avoid any sedatives. 2. Continue with oxygen and maintain sats above 92%. 3. Bronchodilators in the form of DuoNeb q.4h. plus q.2h. p.r.n. for shortness of breath. 4. Continue with noninvasive positive pressure ventilation for respiratory distress. Check ABG now and will repeat a chest x-ray in the a.m. 5. Diurese with Bumex 1 mg IV x1 now and will place on Lasix 40 mg IV q.12h. 6. Continue with Cardene drip. Monitor heart rate and blood pressure closely. 7. Will obtain a 2-D echo to evaluate LV function and to rule out regional wall motion abnormalities. 8. Monitor cardiac enzymes with troponins. 9. Continue with aspirin 81 mg daily. 10. Monitor renal function, I's and O's, and avoid nephrotoxins. Diuretics as stated above. Monitor BMP. 11. Keep n.p.o. for now until respiratory status improves. 12. Monitor LFTs and will check ultrasound of the liver. 13. Will hold off on antibiotics at this time as there is no signs of an infectious process. Panculture if spikes a fever. Will obtain urinalysis with culture if indicated. A chest x-ray in the ED was suggestive of pulmonary edema. 14. Place on sliding scale insulin with Accu-Cheks for glycemic control. 15. Check a baseline TSH level. 16. Monitor CBC. 17. GI prophylaxis with Protonix 40 mg daily and DVT prophylaxis with SCDs and heparin subcu. 18. Further recommendations will be based on the hospital course. Thank you MD JACQUI Vilchis/DON /2:46 PM /3:03 PM
--- NOTE | 2017-02-02 15:23 | RADRPT ---
EXAM DATE/TIME: 02/02/2017 14:43 [facility] COMPARISON: No previous studies available for comparison. INDICATIONS : Increased lab values. MEDICAL HISTORY : Heart attack. Diabetes. Coronary artery disease. SURGICAL HISTORY : Cholecystectomy. L5-L6 fusion. Cardiac catheterization. ENCOUNTER: Initial ACUITY: 1 day PAIN SCORE: 3/10 LOCATION: Abdomen. MEASUREMENTS: LIVER: 16.1 cm length COMMON DUCT: 7 mm RIGHT KIDNEY: 11.9 x 5.4 x 5.4 cm SPLEEN: 10.1 cm length FINDINGS: LIVER: Normal echotexture without focal lesion or ductal dilatation. There is a small right pleural effusio n. COMMON DUCT: No intraluminal mass or stone visualized. GALLBLADDER: Status post cholecystectomy. PANCREAS: The visualized portions are within normal limits. RIGHT KIDNEY: Normal in size and shape. There is a small echogenic foci measuring 5 mm. In the upper pole with no o bstruction. SPLEEN: No focal lesion. There is a small left pleural effusion. CONCLUSION: 1. Tiny echogenic foci measuring 5 mm in the right kidney. 2. Small bilateral pleural effusions. 3. The liver is unremarkable in appearance. 4. That is post cholecystectomy. Mahendra Palacios MD on February 02, 2017 at 15:11 Board Certified Radiologist. This report was verified electronically.
[2017-02-02 15:44] LABS: BLOOD GAS BASE EXCESS -4.2 mmol/L (-2-2); BLOOD GAS CARBOXYHEMOGLOBIN 2.2 % (0-4); BLOOD GAS HCO3 20 mmol/L (22-26); BLOOD GAS METHEMOGLOBIN 0.6 % (0-2); BLOOD GAS O2 HGB SATURATION 92 % (90-100); BLOOD GAS PCO2 31 mmHg (38-42); BLOOD GAS PO2 70 mmHG (61-120); BLOOD GAS TOTAL HGB 10.9 G/DL (12.0-16.0); CRITICAL VALUE NO; DRAW SITE LT RADIAL; FIO2 50 %; NUMBER OF ARTERIAL PUNCTURES 1; OXYGEN DEVICE BiPAP; STAT YES; TEMP CORR TO 98.6; ULNAR PULSE PRESENT; VENT SETTINGS IPAP10/EPAP5
[2017-02-02 16:35] LABS: BLOOD, URINE MOD (NEG); GLUCOSE,URINE NEG (NEG); KETONE, URINE NEG (NEG); NITRITE,URINE NEG (NEG); PH, URINE 5.5 (5.0-8.5); URINE COLOR YELLOW (YELLW/STRAW)
[2017-02-02 16:38] LABS: WHITE BLOOD CELL CAST, URINE 0-2 /lpf
[2017-02-02 16:39] LABS: BACTERIA, URINE FEW /hpf; COMMENT (UR) CULTURE INDICATED; CULTURE IF INDICATED CULTURE INDICATED
[2017-02-02] MEDS: FUROSEMIDE 40 MG/4 ML VIAL IV PUSH SCH (19:55)
[2017-02-02] MEDS: DOCUSATE SODIUM 50 MG/SENNA 8.6 MG TAB PO SCH (19:55)
[2017-02-02] MEDS: RESP: ALBUTEROL 2.5 MG/IPRATROPIUM 0.5 MG NEB (SCH) INH (20:06)
[2017-02-02] MEDS ORDERED: ASPIRIN 81 MG CHEW TAB CHEW ONE (23:30)
[2017-02-02] MEDS: NITROGLYCERIN 0.4 MG SL 25 TABS/BTL SL PRN ×3 (23:35→23:57)
[2017-02-03] VITALS (28 sets, daily range): BP systolic 122–176; BP diastolic 64–90; PULSE 55–75; RESP 17–34; TEMP 97.4–99.3; O2SAT 92–100
[2017-02-03] MEDS ORDERED: NITROGLYCERIN 2% OINT 1 GM PACKET TOPICAL ONE (00:45)
[2017-02-03] MEDS: MORPHINE SULFATE 2 MG/ML INJ IV PUSH PRN (00:47)
[2017-02-03] MEDS: RESP: ALBUTEROL 2.5 MG/IPRATROPIUM 0.5 MG NEB (SCH) INH ×7 (00:50→23:16)
[2017-02-03] MEDS: INSULIN NovoLIN REGULAR SUPPLEMENTAL SCALE SQ SCH ×5 (01:43→18:28)
[2017-02-03] MEDS: HEPARIN SODIUM - SQ 10,000 UNITS/ML VIAL SQ SCH ×2 (01:43→14:44)
[2017-02-03 02:25] LABS: AUTOMATED NEUTROPHIL # 7.5 TH/MM3 (1.8-7.7); BASOPHIL # 0.1 TH/MM3 (0-0.2); BASOPHIL % 0.8 % (0.0-2.0); EOSINOPHIL # 0.1 TH/MM3 (0-0.4); EOSINOPHIL % 0.8 % (0.0-4.0); HEMATOCRIT 28.7 % (39.0-51.0); HEMO FLAGS DIFF FINAL; LYMPH % 18.2 % (9.0-44.0); LYMPHOCYTE # 1.9 TH/MM3 (1.0-4.8); MEAN CORPUSCULAR HEMOGLOBIN 30.1 PG (27.0-34.0); MEAN CORPUSCULAR HGB CONC 33.1 % (32.0-36.0); MONO % 7.5 % (0.0-8.0); NEUT % 72.7 % (16.0-70.0); PLATELET COUNT 336 TH/MM3 (150-450); RED BLOOD COUNT 3.16 MIL/MM3 (4.50-5.90); RED CELL DISTRIBUTION WIDTH 14.5 % (11.6-17.2); WHITE BLOOD COUNT 10.3 TH/MM3 (4.0-11.0)
[2017-02-03 03:01] LABS: ANION GAP 12 MEQ/L (5-15); AST (GOT) 36 U/L (15-37); BICARBONATE 19.6 MEQ/L (21.0-32.0); BLOOD UREA NITROGEN 44 MG/DL (7-18); CHLORIDE 109 MEQ/L (98-107); POTASSIUM 4.4 MEQ/L (3.5-5.1); SODIUM (NA) 141 MEQ/L (136-145)
[2017-02-03 03:13] LABS: ALKALINE PHOSPHATASE 87 U/L (45-117); ALT (GPT) 69 U/L (12-78); GLOMERULAR FILTRATION RATE 53 ML/MIN (>89); HDL CHOLESTEROL 22.9 MG/DL (40.0-60.0); LDL CHOLESTEROL 67 MG/DL (0-99); TOTAL BILIRUBIN ADULT 0.5 MG/DL (0.2-1.0)
[2017-02-03] MEDS: CHLORHEXIDINE GLUCONATE 2 % 1 PACK (2 CLOTHS) TOP SCH (03:16)
--- NOTE | 2017-02-03 06:10 | RADRPT ---
EXAM DATE/TIME: 02/03/2017 03:37 [facility] COMPARISON: CHEST SINGLE AP, February 02, 2017, 12:59. INDICATIONS : Shortness of breath MEDICAL HISTORY : Hypertension. Myocardial infarction. Diabetes mellitus type II. SURGICAL HISTORY : Cholecystectomy. Cardiac cath ENCOUNTER: Subsequent ACUITY: 3 days PAIN SCORE: 7/10 LOCATION: Bilateral chest FINDINGS: Significant decrease in the infiltrates in the right lower lung and persistent infiltrates in the lef t lower lung. There is an increasing amount of obscuration of the left hemidiaphragm. The right cos tophrenic angle remains well delineated. The heart is normal size. CONCLUSION: Increasing infiltrates at the left lung base and decreasing infiltrates on the right side. Ancelmo Shaikh MD on February 03, 2017 at 6:08 Board Certified Radiologist. This report was verified electronically.
--- NOTE | 2017-02-03 08:55 | HHI.CCPN ---
Subjective Remarks/Hospital Course The patient is a 66-year-old male with past medical history of coronary artery disease with previous stents, CHF, diabetes mellitus, hypertension, who presented to [facility] ED with a two-day history of progressive worsening shortness of breath. In addition, the patient reports a productive cough with yellow phlegm and edema of his ankles. The patient also reports orthopnea, however, he denies any PND, nausea or vomiting. He has not seen his deboner for a long time. The patient is an active smoker where he smokes 10-15 cigarettes per day and has been a smoker for over 50 years. He denies any use of oxygen or bronchodilators at home. On arrival to the ED he was hypertensive with a blood pressure 227/114. Chest x-ray in the ER showed bilateral alveolar infiltrates consistent with pulmonary edema. His laboratory data is significant for elevated BNP at 1528, troponin 0.03 and creatinine 1.37. In the ED he was placed on a Cardene drip and BiPAP. His current blood pressure is 140/83 with saturation 93% and pulse 64. 02/03 Patient remains on BIPAP 10/ with 40% FIO2. States he is feeling better. Off Cardene drip. Objective Vital Signs Date Time Temp Pulse Resp B/P (MAP) Pulse Ox O2 Delivery O2 Flow Rate FiO2 02/03/17 07:40 99 Nasal Cannula 4.00 02/03/17 06:00 55 02/03/17 04:27 40 02/03/17 04:00 97.4 24 134/71 (92) Intake and Output 02/03/17 02/03/17 02/04/17 08:00 16:00 00:00 Output Total 1000 ml Balance -1000 ml Result Diagram: 02/03/17 0114 02/03/17 0114 Other Results Laboratory Tests Test 02/02/17 12:56 02/02/17 13:05 02/02/17 15:35 02/02/17 15:40 White Blood Count 12.8 TH/MM3 Red Blood Count 3.55 MIL/MM3 Hemoglobin 10.8 GM/DL Hematocrit 33.0 % Mean Corpuscular Volume 92.8 FL Mean Corpuscular Hemoglobin 30.4 PG Mean Corpuscular Hemoglobin Concent 32.7 % Red Cell Distribution Width 14.8 % Platelet Count 366 TH/MM3 Mean Platelet Volume 9.4 FL Neutrophils (%) (Auto) 81.9 % Lymphocytes (%) (Auto) 11.7 % Monocytes (%) (Auto) 5.3 % Eosinophils (%) (Auto) 0.4 % Basophils (%) (Auto) 0.7 % Neutrophils # (Auto) 10.4 TH/MM3 Lymphocytes # (Auto) 1.5 TH/MM3 Monocytes # (Auto) 0.7 TH/MM3 Eosinophils # (Auto) 0.0 TH/MM3 Basophils # (Auto) 0.1 TH/MM3 CBC Comment DIFF FINAL Differential Comment Prothrombin Time 12.2 SEC Prothromb Time International Ratio 1.1 RATIO Activated Partial Thromboplast Time 28.4 SEC Blood Urea Nitrogen 46 MG/DL Creatinine 1.37 MG/DL Random Glucose 136 MG/DL Total Protein 8.7 GM/DL Albumin 2.2 GM/DL Calcium Level 8.1 MG/DL Magnesium Level 2.5 MG/DL Alkaline Phosphatase 105 U/L Aspartate Amino Transf (AST/SGOT) 52 U/L Alanine Aminotransferase (ALT/SGPT) 82 U/L Total Bilirubin 0.4 MG/DL Sodium Level 138 MEQ/L Potassium Level 5.1 MEQ/L Chloride Level 108 MEQ/L Carbon Dioxide Level 20.4 MEQ/L Anion Gap 10 MEQ/L Estimat Glomerular Filtration Rate 52 ML/MIN Total Creatine Kinase 91 U/L Troponin I 0.03 NG/ML B-Type Natriuretic Peptide 1528 PG/ML Blood Gas Puncture Site RN LT RADIAL Blood Gas Patient Temperature 98.6 98.6 Venous Blood pH 7.35 Venous Blood Partial Pressure CO2 40 mmHg Venous Blood Partial Pressure O2 22 mmHg Venous Blood HCO3 22 mmol/L Venous Blood Oxygen Saturation 30 % Venous Blood Oxygen Content 4.4 Vol % Venous Blood Base Excess -3.1 mmol/L Oxygen Delivery Device NASAL CANNULA BiPAP Blood Gas Liter Flow 4 L/M Blood Gas HCO3 20 mmol/L Blood Gas Base Excess -4.2 mmol/L Blood Gas Oxygen Saturation 92 % Arterial Blood pH 7.42 Arterial Blood Partial Pressure CO2 31 mmHg Arterial Blood Partial Pressure O2 70 mmHG Arterial Blood Oxygen Content 14.0 Vol % Arterial Blood Carboxyhemoglobin 2.2 % Arterial Blood Methemoglobin 0.6 % Blood Gas Hemoglobin 10.9 G/DL Blood Gas Ventilator Setting [id number] Blood Gas Inspired Oxygen 50 % Urine Color YELLOW Urine Turbidity CLEAR Urine pH 5.5 Urine Specific [place] 1.014 Urine Protein 100 mg/dL Urine Glucose (UA) NEG mg/dL Urine Ketones NEG mg/dL Urine Occult Blood MOD Urine Nitrite NEG Urine Bilirubin NEG Urine Urobilinogen LESS THAN 2.0 MG/DL Urine Leukocyte Esterase MOD Urine RBC 10-14 /hpf Urine WBC 50-99 /hpf Urine WBC Clumps FEW Urine Squamous Epithelial Cells 6-8 /hpf Urine Bacteria FEW /hpf Urine White Blood Cell Casts 0-2 /lpf Microscopic Urinalysis Comment CULTURE INDICATED Test 02/02/17 18:46 02/03/17 01:14 02/03/17 06:30 Troponin I 0.04 NG/ML 0.03 NG/ML White Blood Count 10.3 TH/MM3 Red Blood Count 3.16 MIL/MM3 Hemoglobin 9.5 GM/DL Hematocrit 28.7 % Mean Corpuscular Volume 91.0 FL Mean Corpuscular Hemoglobin 30.1 PG Mean Corpuscular Hemoglobin Concent 33.1 % Red Cell Distribution Width 14.5 % Platelet Count 336 TH/MM3 Mean Platelet Volume 9.0 FL Neutrophils (%) (Auto) 72.7 % Lymphocytes (%) (Auto) 18.2 % Monocytes (%) (Auto) 7.5 % Eosinophils (%) (Auto) 0.8 % Basophils (%) (Auto) 0.8 % Neutrophils # (Auto) 7.5 TH/MM3 Lymphocytes # (Auto) 1.9 TH/MM3 Monocytes # (Auto) 0.8 TH/MM3 Eosinophils # (Auto) 0.1 TH/MM3 Basophils # (Auto) 0.1 TH/MM3 CBC Comment DIFF FINAL Differential Comment Blood Urea Nitrogen 44 MG/DL Creatinine 1.36 MG/DL Random Glucose 94 MG/DL Total Protein 7.7 GM/DL Albumin 2.0 GM/DL Calcium Level 7.7 MG/DL Alkaline Phosphatase 87 U/L Aspartate Amino Transf (AST/SGOT) 36 U/L Alanine Aminotransferase (ALT/SGPT) 69 U/L Total Bilirubin 0.5 MG/DL Sodium Level 141 MEQ/L Potassium Level 4.4 MEQ/L Chloride Level 109 MEQ/L Carbon Dioxide Level 19.6 MEQ/L Anion Gap 12 MEQ/L Estimat Glomerular Filtration Rate 53 ML/MIN B-Type Natriuretic Peptide 1370 PG/ML Triglycerides Level 123 MG/DL Cholesterol Level 114 MG/DL LDL Cholesterol 67 MG/DL HDL Cholesterol 22.9 MG/DL Cholesterol/HDL Ratio 4.97 RATIO Thyroid Stimulating Hormone 3rd Gen 1.060 uIU/ML Imaging Last Impressions Chest X-Ray 02/03/17 0000 Signed Impressions: Service Date/Time: Friday, February 03, 2017 03:37 - CONCLUSION: Increasing infiltrates at the left lung base and decreasing infiltrates on the right side. Ancelmo Shaikh MD Liver Ultrasound 02/02/17 0000 Signed Impressions: Service Date/Time: Thursday, February 02, 2017 14:43 - CONCLUSION: 1. Tiny echogenic foci measuring 5 mm in the right kidney. 2. Small bilateral pleural effusions. 3. The liver is unremarkable in appearance. 4. That is post cholecystectomy. Mahendra Palacios MD Objective Remarks GENERAL: Patient is 66 yo lying in bed in NAD on BIPAP. SKIN: Warm and dry. HEAD: Normocephalic. EYES: No scleral icterus. No injection or drainage. NECK: Supple, trachea midline. No JVD or lymphadenopathy. CARDIOVASCULAR: Regular rate and rhythm without murmurs, gallops, or rubs. RESPIRATORY: Breath sounds equal bilaterally. No accessory muscle use. GASTROINTESTINAL: Abdomen soft, non-tender, nondistended. MUSCULOSKELETAL: No cyanosis, or edema. Neuro: Awake al A/P Assessment and Plan 1. Acute respiratory failure. 2. CHF decompensation. 3. Hypertensive emergency. 4. Mild Acute kidney injury. 5. Elevated liver enzymes. 6. Leukocytosis,trending down 7. Diabetes mellitus. 8. Anemia. 9. History of coronary artery disease. 10. Active tobacco use. Plan Neuro: Monitor neuro status closely and avoid any sedatives. Pulm: Continue with oxygen and maintain sats >92%. Bronchodilators, NIPPV PRN for respiratory distress. On Lasix 40 mg IV q.12h. CV: Monitor HR and BP keep MAP>65mmHg On Aspirin 81 mg daily. Off Duarte drip. For 2D echo today, continue with diuretics. : Monitor renal function, I's and O's, and avoid nephrotoxins. GI: Start PO heart healthy diet US Liver: Tiny echogenic foci measuring 5 mm in the right kidney. 2. Small bilateral pleural effusions. The liver is unremarkable in appearance ID: Monitor for signs of infections ( Fever, WBC) Endo: SSI with Accu-Cheks for glycemic control. TSH: 1.0 Heme: Monitor CBC. GI prophylaxis with Protonix 40 mg daily and DVT prophylaxis with SCDs and heparin subcu. Level 3 Donavon Reeder MD Feb 03, 2017 08:55
[2017-02-03] MEDS: ASPIRIN 81 MG CHEW TAB CHEW SCH (09:17)
[2017-02-03] MEDS: DOCUSATE SODIUM 50 MG/SENNA 8.6 MG TAB PO SCH ×2 (09:18→20:34)
[2017-02-03] MEDS: PANTOPRAZOLE SODIUM 40 MG VIAL IV PUSH SCH (09:19)
[2017-02-03] MEDS: FUROSEMIDE 40 MG/4 ML VIAL IV PUSH SCH ×2 (09:20→20:34)
--- NOTE | 2017-02-03 09:22 | EKG ---
Date Performed: 02/02/2017 Time Performed: 12:47:52 PTAGE: 66 years EKG: Sinus rhythm POSSIBLE LEFT ATRIAL ENLARGEMENT Compared to prior tracing no significant change BORDERLINE ECG PREVIOUS TRACING : 08/18/2016 09.18 DOCTOR: Artis Hernandez Interpretating Date/Time 02/03/2017 09:21:14
[2017-02-03] MEDS ORDERED: hydrALAZINE HCL 20 MG/ML VIAL IV PUSH PRN (09:30)
[2017-02-03] MEDS: hydrALAZINE HCL 50 MG TAB PO SCH ×3 (09:42→20:34)
--- NOTE | 2017-02-03 15:57 | EKG ---
Date Performed: 02/02/2017 Time Performed: 23:41:34 PTAGE: 66 years EKG: Sinus rhythm Lead(s) unsuitable for analysis: V6 Prolonged QT interval Compared to prior tracing no significant c hange Borderline ECG PREVIOUS TRACING : 02/02/17 @ 1247 DOCTOR: Artis Hernandez Interpretating Date/Time 02/03/2017 15:56:33
[2017-02-04] VITALS (26 sets, daily range): BP systolic 131–188; BP diastolic 68–94; PULSE 56–89; RESP 13–36; TEMP 97.4–98.4; O2SAT 93–96
[2017-02-04] MEDS: INSULIN NovoLIN REGULAR SUPPLEMENTAL SCALE SQ SCH ×7 (00:08→22:26)
[2017-02-04] MEDS: MORPHINE SULFATE 2 MG/ML INJ IV PUSH PRN ×2 (02:00→07:13)
[2017-02-04] MEDS ORDERED: hydrALAZINE HCL 100 MG TAB PO ONE (02:20)
[2017-02-04] MEDS: CHLORHEXIDINE GLUCONATE 2 % 1 PACK (2 CLOTHS) TOP SCH (04:00)
[2017-02-04] MEDS: RESP: ALBUTEROL 2.5 MG/IPRATROPIUM 0.5 MG NEB (SCH) INH ×6 (04:15→23:16)
[2017-02-04] MEDS: HEPARIN SODIUM - SQ 10,000 UNITS/ML VIAL SQ SCH ×2 (04:34→14:08)
[2017-02-04] MEDS: hydrALAZINE HCL 50 MG TAB PO SCH ×3 (05:53→22:25)
[2017-02-04 05:54] LABS: BICARBONATE 22.4 MEQ/L (21.0-32.0); POTASSIUM 3.8 MEQ/L (3.5-5.1)
[2017-02-04 05:57] LABS: AUTOMATED NEUTROPHIL # 11.2 TH/MM3 (1.8-7.7); BASOPHIL # 0.1 TH/MM3 (0-0.2); BASOPHIL % 0.4 % (0.0-2.0); EOSINOPHIL # 0.2 TH/MM3 (0-0.4); EOSINOPHIL % 1.1 % (0.0-4.0); HEMATOCRIT 28.7 % (39.0-51.0); HEMO FLAGS DIFF FINAL; LYMPH % 14.8 % (9.0-44.0); LYMPHOCYTE # 2.2 TH/MM3 (1.0-4.8); MEAN CELL VOLUME 90.8 FL (80.0-100.0); MEAN CORPUSCULAR HGB CONC 33.1 % (32.0-36.0); MONO % 7.2 % (0.0-8.0); NEUT % 76.5 % (16.0-70.0); PLATELET COUNT 343 TH/MM3 (150-450); RED BLOOD COUNT 3.17 MIL/MM3 (4.50-5.90); RED CELL DISTRIBUTION WIDTH 14.4 % (11.6-17.2); WHITE BLOOD COUNT 14.6 TH/MM3 (4.0-11.0)
--- NOTE | 2017-02-04 08:17 | HHI.CCPN ---
Subjective Remarks/Hospital Course The patient is a 66-year-old male with past medical history of coronary artery disease with previous stents, CHF, diabetes mellitus, hypertension, who presented to [facility] ED with a two-day history of progressive worsening shortness of breath. In addition, the patient reports a productive cough with yellow phlegm and edema of his ankles. The patient also reports orthopnea, however, he denies any PND, nausea or vomiting. He has not seen his halal meat packer for a long time. The patient is an active smoker where he smokes 10-15 cigarettes per day and has been a smoker for over 50 years. He denies any use of oxygen or bronchodilators at home. On arrival to the ED he was hypertensive with a blood pressure 227/114. Chest x-ray in the ER showed bilateral alveolar infiltrates consistent with pulmonary edema. His laboratory data is significant for elevated BNP at 1528, troponin 0.03 and creatinine 1.37. In the ED he was placed on a Cardene drip and BiPAP. His current blood pressure is 140/83 with saturation 93% and pulse 64. 02/03 Patient remains on BIPAP 12/21 with 40% FIO2. States he is feeling better. Off Cardene drip. 02/04 Patient was hypertensive overnight given Hydralazine 100mg PO x1 and 10mg IV. Off BIPAP. Objective Vital Signs Date Time Temp Pulse Resp B/P (MAP) Pulse Ox O2 Delivery O2 Flow Rate FiO2 02/04/17 07:41 96 Nasal Cannula 2.00 02/04/17 06:00 69 02/04/17 04:00 97.9 22 167/77 (107) 02/03/17 19:51 40 Intake and Output 02/04/17 02/04/17 02/05/17 08:00 16:00 00:00 Intake Total 600 ml Output Total 1150 ml Balance -550 ml Result Diagram: 02/04/17 0405 02/04/17 0405 Other Results Laboratory Tests Test 02/04/17 04:05 White Blood Count 14.6 TH/MM3 Red Blood Count 3.17 MIL/MM3 Hemoglobin 9.5 GM/DL Hematocrit 28.7 % Mean Corpuscular Volume 90.8 FL Mean Corpuscular Hemoglobin 30.0 PG Mean Corpuscular Hemoglobin Concent 33.1 % Red Cell Distribution Width 14.4 % Platelet Count 343 TH/MM3 Mean Platelet Volume 9.0 FL Neutrophils (%) (Auto) 76.5 % Lymphocytes (%) (Auto) 14.8 % Monocytes (%) (Auto) 7.2 % Eosinophils (%) (Auto) 1.1 % Basophils (%) (Auto) 0.4 % Neutrophils # (Auto) 11.2 TH/MM3 Lymphocytes # (Auto) 2.2 TH/MM3 Monocytes # (Auto) 1.0 TH/MM3 Eosinophils # (Auto) 0.2 TH/MM3 Basophils # (Auto) 0.1 TH/MM3 CBC Comment DIFF FINAL Differential Comment Blood Urea Nitrogen 41 MG/DL Creatinine 1.32 MG/DL Random Glucose 102 MG/DL Calcium Level 8.1 MG/DL Sodium Level 135 MEQ/L Potassium Level 3.8 MEQ/L Chloride Level 104 MEQ/L Carbon Dioxide Level 22.4 MEQ/L Anion Gap 9 MEQ/L Estimat Glomerular Filtration Rate 55 ML/MIN Imaging Last Impressions Chest X-Ray 02/03/17 0000 Signed Impressions: Service Date/Time: Friday, February 03, 2017 03:37 - CONCLUSION: Increasing infiltrates at the left lung base and decreasing infiltrates on the right side. Ancelmo Shaikh MD Liver Ultrasound 02/02/17 0000 Signed Impressions: Service Date/Time: Thursday, February 02, 2017 14:43 - CONCLUSION: 1. Tiny echogenic foci measuring 5 mm in the right kidney. 2. Small bilateral pleural effusions. 3. The liver is unremarkable in appearance. 4. That is post cholecystectomy. Mahendra Palacios MD Objective Remarks GENERAL: Patient is 66 yo lying in bed in NAD SKIN: Warm and dry. HEAD: Normocephalic. EYES: No scleral icterus. No injection or drainage. NECK: Supple, trachea midline. No JVD or lymphadenopathy. CARDIOVASCULAR: Regular rate and rhythm without murmurs, gallops, or rubs. RESPIRATORY: Breath sounds equal bilaterally. Coarse BS at bases GASTROINTESTINAL: Abdomen soft, non-tender, nondistended. MUSCULOSKELETAL: No cyanosis, or edema. Neuro: Awake alert A/P Assessment and Plan 1. Acute respiratory failure. 2. CHF decompensation. 3. Hypertensive emergency. 4. Mild Acute kidney injury. 5. Elevated liver enzymes. 6. Leukocytosis,trending down 7. Diabetes mellitus. 8. Anemia. 9. History of coronary artery disease. 10. Active tobacco use. 11 UTI Plan Neuro: Monitor neuro status closely and avoid any sedatives. Pulm: Continue with oxygen and maintain sats >92%. Bronchodilators, NIPPV PRN for respiratory distress. On Lasix 40 mg IV q.12h. Solumederol 40mg Q6 x 4 doses Check CXR CV: Monitor HR and BP keep MAP>65mmHg On Aspirin 81 mg daily. On Hydralazine 50mg Q8, add Lopressor 25mg Q12 For 2D echo today, continue with diuretics. Check BNP. : Monitor renal function, I's and O's, and avoid nephrotoxins. GI: On PO heart healthy diet US Liver: Tiny echogenic foci measuring 5 mm in the right kidney. 2. Small bilateral pleural effusions. The liver is unremarkable in appearance ID: Place on Rocephin 1gram daily for UTI. Monitor for signs of infections ( Fever, WBC) Follow up on urine cxs Endo: SSI with Accu-Cheks for glycemic control. TSH: 1.0 Heme: Monitor CBC. GI prophylaxis with Protonix 40 mg daily and DVT prophylaxis with SCDs and heparin subcu. Level 3 Donavon Reeder MD Feb 04, 2017 08:17
--- NOTE | 2017-02-04 08:46 | RADRPT ---
EXAM DATE/TIME: 02/04/2017 08:26 [place] COMPARISON: No previous studies available for comparison. INDICATIONS : Short of breath. MEDICAL HISTORY : Hypertension. Myocardial infarction. Diabetes mellitus type II. SURGICAL HISTORY : Cholecystectomy. Cardiac cath ENCOUNTER: Subsequent ACUITY: 3 days PAIN SCORE: 2/10 LOCATION: Bilateral chest FINDINGS: Mild airspace opacities are again seen at both bases. Probably a very small effusion on the left. I d on't see a pneumothorax. Heart size stable, within normal limits. CONCLUSION: No significant change mild bibasilar airspace disease. Abdirahman Miramontes MD on February 04, 2017 at 8:44 Board Certified Radiologist. This report was verified electronically.
[2017-02-04] MEDS: cefTRIAXone INJ 1,000 MG in SODIUM CHLORIDE 0.9% INJ 100 ML IV SCH (09:00)
[2017-02-04] MEDS: FUROSEMIDE 40 MG/4 ML VIAL IV PUSH SCH ×2 (09:19→20:43)
[2017-02-04] MEDS: PANTOPRAZOLE SODIUM 40 MG VIAL IV PUSH SCH (09:19)
[2017-02-04] MEDS: METOPROLOL TARTRATE 25 MG TAB PO SCH ×2 (09:20→20:43)
[2017-02-04] MEDS: ASPIRIN 81 MG CHEW TAB CHEW SCH (09:20)
[2017-02-04] MEDS: DOCUSATE SODIUM 50 MG/SENNA 8.6 MG TAB PO SCH ×2 (09:20→20:43)
[2017-02-04] MEDS: methylPREDNISolone SOD SUCC 40 MG/1 ML VIAL IV PUSH SCH ×3 (09:21→20:43)
[2017-02-04] MEDS: ACETAMINOPHEN 325 MG TAB PO PRN (10:24)
[2017-02-04] MEDS: ONDANSETRON HCL 4 MG/2 ML VIAL IV PUSH PRN (10:24)
[2017-02-04] MEDS: hydrALAZINE HCL 20 MG/ML VIAL IV PUSH PRN ×2 (11:06→18:42)
[2017-02-05] VITALS (14 sets, daily range): BP systolic 160–179; BP diastolic 77–88; PULSE 55–86; RESP 16–30; TEMP 97.5–98.4; O2SAT 91–97
[2017-02-05] MEDS: RESP: ALBUTEROL 2.5 MG/IPRATROPIUM 0.5 MG NEB (SCH) INH ×6 (03:57→23:31)
[2017-02-05] MEDS: CHLORHEXIDINE GLUCONATE 2 % 1 PACK (2 CLOTHS) TOP SCH (04:00)
[2017-02-05] MEDS: HEPARIN SODIUM - SQ 10,000 UNITS/ML VIAL SQ SCH ×2 (04:01→14:13)
[2017-02-05] MEDS: methylPREDNISolone SOD SUCC 40 MG/1 ML VIAL IV PUSH SCH (04:01)
[2017-02-05] MEDS: INSULIN NovoLIN REGULAR SUPPLEMENTAL SCALE SQ SCH ×6 (04:01→23:00)
[2017-02-05] MEDS: hydrALAZINE HCL 50 MG TAB PO SCH (05:03)
[2017-02-05 05:18] LABS: AUTOMATED NEUTROPHIL # 8.2 TH/MM3 (1.8-7.7); BASOPHIL % 0.1 % (0.0-2.0); HEMATOCRIT 29.1 % (39.0-51.0); HEMO FLAGS DIFF FINAL; LYMPHOCYTE # 0.6 TH/MM3 (1.0-4.8); MEAN CELL VOLUME 90.9 FL (80.0-100.0); MEAN CORPUSCULAR HEMOGLOBIN 30.6 PG (27.0-34.0); MEAN CORPUSCULAR HGB CONC 33.7 % (32.0-36.0); MONO % 2.4 % (0.0-8.0); NEUT % 90.5 % (16.0-70.0); PLATELET COUNT 309 TH/MM3 (150-450)
[2017-02-05 05:39] LABS: POTASSIUM 4.5 MEQ/L (3.5-5.1)
[2017-02-05] MEDS: METOPROLOL TARTRATE 25 MG TAB PO SCH (08:02)
[2017-02-05] MEDS: PANTOPRAZOLE SODIUM 40 MG VIAL IV PUSH SCH (08:02)
[2017-02-05] MEDS: cefTRIAXone INJ 1,000 MG in SODIUM CHLORIDE 0.9% INJ 100 ML IV SCH (08:02)
[2017-02-05] MEDS: FUROSEMIDE 40 MG/4 ML VIAL IV PUSH SCH (08:02)
[2017-02-05] MEDS: ASPIRIN 81 MG CHEW TAB CHEW SCH (08:03)
[2017-02-05] MEDS: DOCUSATE SODIUM 50 MG/SENNA 8.6 MG TAB PO SCH ×2 (08:03→21:01)
--- NOTE | 2017-02-05 08:39 | HHI.CCPN ---
Subjective Remarks/Hospital Course The patient is a 66-year-old male with past medical history of coronary artery disease with previous stents, CHF, diabetes mellitus, hypertension, who presented to [facility] ED with a two-day history of progressive worsening shortness of breath. In addition, the patient reports a productive cough with yellow phlegm and edema of his ankles. The patient also reports orthopnea, however, he denies any PND, nausea or vomiting. He has not seen his heavy equipment mechanic for a long time. The patient is an active smoker where he smokes 10-15 cigarettes per day and has been a smoker for over 50 years. He denies any use of oxygen or bronchodilators at home. On arrival to the ED he was hypertensive with a blood pressure 227/114. Chest x-ray in the ER showed bilateral alveolar infiltrates consistent with pulmonary edema. His laboratory data is significant for elevated BNP at 1528, troponin 0.03 and creatinine 1.37. In the ED he was placed on a Cardene drip and BiPAP. His current blood pressure is 140/83 with saturation 93% and pulse 64. 02/03 Patient remains on BIPAP 12/21 with 40% FIO2. States he is feeling better. Off Cardene drip. 02/04 Patient was hypertensive overnight given Hydralazine 100mg PO x1 and 10mg IV. Off BIPAP. 02/05 No events overnight. Off BIPAP feeling better. Objective Vital Signs Date Time Temp Pulse Resp B/P (MAP) Pulse Ox O2 Delivery O2 Flow Rate FiO2 02/05/17 06:00 59 02/05/17 04:00 97.9 20 179/84 (115) 92 02/04/17 19:39 Nasal Cannula 2.00 02/03/17 19:51 40 Intake and Output 02/05/17 02/05/17 02/06/17 08:00 16:00 00:00 Intake Total 240 ml Output Total 400 ml Balance -160 ml Result Diagram: 02/05/17 0429 02/05/17 0429 Other Results Laboratory Tests Test 02/05/17 04:29 White Blood Count 9.0 TH/MM3 Red Blood Count 3.20 MIL/MM3 Hemoglobin 9.8 GM/DL Hematocrit 29.1 % Mean Corpuscular Volume 90.9 FL Mean Corpuscular Hemoglobin 30.6 PG Mean Corpuscular Hemoglobin Concent 33.7 % Red Cell Distribution Width 15.0 % Platelet Count 309 TH/MM3 Mean Platelet Volume 9.0 FL Neutrophils (%) (Auto) 90.5 % Lymphocytes (%) (Auto) 7.0 % Monocytes (%) (Auto) 2.4 % Eosinophils (%) (Auto) 0.0 % Basophils (%) (Auto) 0.1 % Neutrophils # (Auto) 8.2 TH/MM3 Lymphocytes # (Auto) 0.6 TH/MM3 Monocytes # (Auto) 0.2 TH/MM3 Eosinophils # (Auto) 0.0 TH/MM3 Basophils # (Auto) 0.0 TH/MM3 CBC Comment DIFF FINAL Differential Comment Blood Urea Nitrogen 46 MG/DL Creatinine 1.73 MG/DL Random Glucose 163 MG/DL Calcium Level 8.5 MG/DL Sodium Level 134 MEQ/L Potassium Level 4.5 MEQ/L Chloride Level 102 MEQ/L Carbon Dioxide Level 22.0 MEQ/L Anion Gap 10 MEQ/L Estimat Glomerular Filtration Rate 40 ML/MIN Imaging Last Impressions Chest X-Ray 02/04/17 0000 Signed Impressions: Service Date/Time: Saturday, February 04, 2017 08:26 - CONCLUSION: No significant change mild bibasilar airspace disease. Abdirahman Miramontes MD Liver Ultrasound 02/02/17 0000 Signed Impressions: Service Date/Time: Thursday, February 02, 2017 14:43 - CONCLUSION: 1. Tiny echogenic foci measuring 5 mm in the right kidney. 2. Small bilateral pleural effusions. 3. The liver is unremarkable in appearance. 4. That is post cholecystectomy. Mahendra Palacios MD Objective Remarks GENERAL: Patient is 66 yo lying in bed in NAD SKIN: Warm and dry. HEAD: Normocephalic. EYES: No scleral icterus. No injection or drainage. NECK: Supple, trachea midline. No JVD or lymphadenopathy. CARDIOVASCULAR: Regular rate and rhythm without murmurs, gallops, or rubs. RESPIRATORY: Breath sounds equal bilaterally. Coarse BS at bases GASTROINTESTINAL: Abdomen soft, non-tender, nondistended. MUSCULOSKELETAL: No cyanosis, or edema. Neuro: Awake alert A/P Assessment and Plan 1. Acute respiratory failure. 2. CHF decompensation. 3. Hypertensive emergency. 4. Mild Acute kidney injury. 5. Elevated liver enzymes. 6. Leukocytosis,trending down 7. Diabetes mellitus. 8. Anemia. 9. History of coronary artery disease. 10. Active tobacco use. 11 UTI Plan Neuro: Monitor neuro status closely and avoid any sedatives. Pulm: Continue with oxygen and maintain sats >92%. Bronchodilators, NIPPV PRN for respiratory distress. s/p Solumederol 40mg Q6 x 4 doses CV: Monitor HR and BP keep MAP>65mmHg On Aspirin 81 mg daily. Increase Hydralazine 75mg Q8, increase Lopressor 50mg Q12 For 2D echo today, continue with diuretics. : Monitor renal function, I's and O's, and avoid nephrotoxins. Cr: 1.73 from 1.32. Decrease Lasix 20mg IV daily. Check BNP ( trending down) GI: On PO heart healthy diet US Liver: Tiny echogenic foci measuring 5 mm in the right kidney. 2. Small bilateral pleural effusions. The liver is unremarkable in appearance ID: Continue Rocephin 1gram daily. Monitor for signs of infections ( Fever, WBC) Endo: SSI with Accu-Cheks for glycemic control. TSH: 1.0 Heme: Monitor CBC. GI prophylaxis with Protonix 40 mg daily and DVT prophylaxis with SCDs and heparin subcu. Level 3 Donavon Reeder MD Feb 05, 2017 08:39
[2017-02-05] MEDS: METOPROLOL TARTRATE 50 MG TAB PO SCH ×2 (09:00→21:01)
[2017-02-05] MEDS: hydrALAZINE HCL 20 MG/ML VIAL IV PUSH PRN ×3 (11:57→18:39)
[2017-02-05] MEDS: hydrALAZINE HCL 25 MG TAB PO SCH ×2 (14:14→21:01)
[2017-02-05] MEDS ORDERED: ARTIFICIAL TEARS OPTH SOLN 15 ML BTL EACH EYE PRN (14:45)
--- NOTE | 2017-02-05 16:04 | ECHRPT ---
Indication: CHF CONCLUSIONS Normal left ventricular size. Wall thickness is normal. The left ventricular systolic function is hyperdynamic with an estimated ejection fraction in the ra nge of 65- 70%. The left atrial size is [id number] dilated. Mild mitral valve regurgitation. Aortic valve sclerosis is present. There is mild tricuspid valve regurgitation. The estimated pulmonary arterial pressure is 59.6 mmHg. BP: 179 / 84 HR: 57 Rhythm: Sinus MEASUREMENTS (Male / Female) Normal Values Technical Quality:Fair 2D ECHO LV Diastolic Diameter PLAX 5.7 cm 4.2 - 5.9 / 3.9 - 5.3 cm LV Systolic Diameter PLAX 3.8 cm IVS Diastolic Thickness 1.0 cm 0.6 - 1.0 / 0.6 - 0.9 cm LVPW Diastolic Thickness 1.0 cm 0.6 - 1.0 / 0.6 - 0.9 cm LV Relative Wall Thickness 0.3 LVOT Diameter 2.0 cm Aortic Root Diameter 3.4 cm LA Systolic Diameter LX 3.3 cm 3.0 - 4.0 / 2.7 - 3.8 cm M-MODE AV Cusp Separation MM 2.4 cm DOPPLER AV Peak Velocity 128.0 cm/s AV Peak Gradient 6.6 mmHg AV Mean Gradient 3.0 mmHg AV Velocity Time Integral 25.5 cm LVOT Peak Velocity 103.0 cm/s LVOT Peak Gradient 4.2 mmHg LVOT Velocity Time Integral 23.0 cm LVOT Cardiac Index 2076.8 cm/minm AV Area Cont Eq vti 2.8 cm AV Area Cont Eq pk 2.5 cm Mitral E Point Velocity 99.7 cm/s Mitral A Point Velocity 71.6 cm/s Mitral E to A Ratio 1.4 LV E' Lateral Velocity 7.6 cm/s Mitral E to LV E' Lateral Ratio 13.1 LV E' Septal Velocity 5.9 cm/s Mitral E to LV E' Septal Ratio 16.8 TR Peak Velocity 352.0 cm/s TR Peak Gradient 49.6 mmHg Right Atrial Pressure 10.0 mmHg Pulmonary Artery Systolic Pressu 59.6 mmHg Right Ventricular Systolic Press 59.6 mmHg PV Peak Velocity 82.0 cm/s PV Peak Gradient 2.7 mmHg FINDINGS LEFT VENTRICLE Normal left ventricular size. Wall thickness is normal. The left ventricular systolic function is hyperdynamic with an estimated ejection fraction in the ra nge of 65- 70%. RIGHT VENTRICLE Normal right ventricular size and systolic function. LEFT ATRIUM The left atrial size is hnre-[id number]-iqqnfnrkes dilated. RIGHT ATRIUM The right atrial size is normal. ATRIAL SEPTUM Normal atrial septal thickness without atrial level shunting by limited color doppler interrogation. AORTA The aortic root and proximal ascending aorta are normal in size on limited imaging. MITRAL VALVE Mild mitral valve regurgitation. AORTIC VALVE Aortic valve sclerosis is present. TRICUSPID VALVE There is mild tricuspid valve regurgitation. The estimated pulmonary arterial pressure is 59.6 mmHg. PULMONARY VALVE No pulmonary valve regurgitation or stenosis. VESSELS The inferior vena cava is normal in size. PERICARDIUM No pericardial effusion. Dayne Clay MD (Electronically Signed) Final Date:05 February 2017 16:03
[2017-02-05] MEDS: ONDANSETRON HCL 4 MG/2 ML VIAL IV PUSH PRN (21:00)
[2017-02-05] MEDS: ACETAMINOPHEN 325 MG TAB PO PRN (21:02)
[2017-02-06] VITALS (15 sets, daily range): BP systolic 154–179; BP diastolic 74–95; PULSE 57–97; RESP 12–19; TEMP 97.4–98.4; O2SAT 93–97
[2017-02-06] MEDS: RESP: ALBUTEROL 2.5 MG/IPRATROPIUM 0.5 MG NEB (SCH) INH ×3 (03:17→11:50)
[2017-02-06] MEDS: INSULIN NovoLIN REGULAR SUPPLEMENTAL SCALE SQ SCH ×5 (06:07→22:14)
[2017-02-06] MEDS: hydrALAZINE HCL 25 MG TAB PO SCH (06:08)
[2017-02-06] MEDS: HEPARIN SODIUM - SQ 10,000 UNITS/ML VIAL SQ SCH ×2 (06:10→16:35)
[2017-02-06 06:14] LABS: AUTOMATED NEUTROPHIL # 9.9 TH/MM3 (1.8-7.7); BASOPHIL % 0.3 % (0.0-2.0); EOSINOPHIL % 0.1 % (0.0-4.0); HEMATOCRIT 28.2 % (39.0-51.0); HEMO FLAGS DIFF FINAL; LYMPH % 18.6 % (9.0-44.0); LYMPHOCYTE # 2.5 TH/MM3 (1.0-4.8); MEAN CELL VOLUME 91.4 FL (80.0-100.0); MEAN CORPUSCULAR HEMOGLOBIN 29.8 PG (27.0-34.0); MEAN CORPUSCULAR HGB CONC 32.6 % (32.0-36.0); MONO % 6.1 % (0.0-8.0); NEUT % 74.9 % (16.0-70.0); PLATELET COUNT 323 TH/MM3 (150-450); RED BLOOD COUNT 3.09 MIL/MM3 (4.50-5.90); WHITE BLOOD COUNT 13.3 TH/MM3 (4.0-11.0)
[2017-02-06 06:50] LABS: BICARBONATE 24.2 MEQ/L (21.0-32.0); POTASSIUM 4.4 MEQ/L (3.5-5.1)
--- NOTE | 2017-02-06 08:13 | HHI.CCPN ---
Subjective Remarks/Hospital Course The patient is a 66-year-old male with past medical history of coronary artery disease with previous stents, CHF, diabetes mellitus, hypertension, who presented to [facility] ED with a two-day history of progressive worsening shortness of breath. In addition, the patient reports a productive cough with yellow phlegm and edema of his ankles. The patient also reports orthopnea, however, he denies any PND, nausea or vomiting. 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 The patient is an active smoker where he smokes 10-15 cigarettes per day and has been a smoker for over 50 years. He denies any use of oxygen or bronchodilators at home. On arrival to the ED he was hypertensive with a blood pressure 227/114. Chest x-ray in the ER showed bilateral alveolar infiltrates consistent with pulmonary edema. His laboratory data is significant for elevated BNP at 1528, troponin 0.03 and creatinine 1.37. In the ED he was placed on a Cardene drip and BiPAP. His current blood pressure is 140/83 with saturation 93% and pulse 64. 02/03 Patient remains on BIPAP 12/21 with 40% FIO2. States he is feeling better. Off Cardene drip. 02/04 Patient was hypertensive overnight given Hydralazine 100mg PO x1 and 10mg IV. Off BIPAP. 02/05 No events overnight. Off BIPAP feeling better. 02/06 No events overnight. Feeling better. Objective Vital Signs Date Time Temp Pulse Resp B/P (MAP) Pulse Ox O2 Delivery O2 Flow Rate FiO2 02/06/17 06:00 97 02/06/17 06:00 97.8 18 179/93 (121) 97 02/05/17 20:01 Nasal Cannula 2.00 02/03/17 19:51 40 Intake and Output 02/06/17 02/06/17 02/07/17 08:00 16:00 00:00 Intake Total 150 ml Output Total 450 ml Balance -300 ml Result Diagram: 02/06/17 0500 02/06/17 0500 Other Results Laboratory Tests Test 02/06/17 05:00 White Blood Count 13.3 TH/MM3 Red Blood Count 3.09 MIL/MM3 Hemoglobin 9.2 GM/DL Hematocrit 28.2 % Mean Corpuscular Volume 91.4 FL Mean Corpuscular Hemoglobin 29.8 PG Mean Corpuscular Hemoglobin Concent 32.6 % Red Cell Distribution Width 15.0 % Platelet Count 323 TH/MM3 Mean Platelet Volume 9.0 FL Neutrophils (%) (Auto) 74.9 % Lymphocytes (%) (Auto) 18.6 % Monocytes (%) (Auto) 6.1 % Eosinophils (%) (Auto) 0.1 % Basophils (%) (Auto) 0.3 % Neutrophils # (Auto) 9.9 TH/MM3 Lymphocytes # (Auto) 2.5 TH/MM3 Monocytes # (Auto) 0.8 TH/MM3 Eosinophils # (Auto) 0.0 TH/MM3 Basophils # (Auto) 0.0 TH/MM3 CBC Comment DIFF FINAL Differential Comment Blood Urea Nitrogen 61 MG/DL Creatinine 1.65 MG/DL Random Glucose 103 MG/DL Calcium Level 8.4 MG/DL Sodium Level 134 MEQ/L Potassium Level 4.4 MEQ/L Chloride Level 102 MEQ/L Carbon Dioxide Level 24.2 MEQ/L Anion Gap 8 MEQ/L Estimat Glomerular Filtration Rate 42 ML/MIN Imaging Last Impressions Chest X-Ray 02/04/17 0000 Signed Impressions: Service Date/Time: Saturday, February 04, 2017 08:26 - CONCLUSION: No significant change mild bibasilar airspace disease. Abdirahman Miramontes MD Liver Ultrasound 02/02/17 0000 Signed Impressions: Service Date/Time: Thursday, February 02, 2017 14:43 - CONCLUSION: 1. Tiny echogenic foci measuring 5 mm in the right kidney. 2. Small bilateral pleural effusions. 3. The liver is unremarkable in appearance. 4. That is post cholecystectomy. Mahendra Palacios MD Objective Remarks GENERAL: Patient is 66 yo lying in bed in NAD SKIN: Warm and dry. HEAD: Normocephalic. EYES: No scleral icterus. No injection or drainage. NECK: Supple, trachea midline. No JVD or lymphadenopathy. CARDIOVASCULAR: Regular rate and rhythm without murmurs, gallops, or rubs. RESPIRATORY: Breath sounds equal bilaterally. Coarse BS at bases GASTROINTESTINAL: Abdomen soft, non-tender, nondistended. MUSCULOSKELETAL: No cyanosis, or edema. Neuro: Awake alert A/P Assessment and Plan 1. Acute respiratory failure. 2. CHF decompensation. 3. Hypertensive emergency. 4. Mild Acute kidney injury. 5. Elevated liver enzymes. 6. Leukocytosis,trending down 7. Diabetes mellitus. 8. Anemia. 9. History of coronary artery disease. 10. Active tobacco use. 11 UTI Plan Neuro: Monitor neuro status closely and avoid any sedatives. Pulm: Continue with oxygen and maintain sats >92%. Bronchodilators, NIPPV PRN for respiratory distress. s/p Solumederol 40mg Q6 x 4 doses CV: Monitor HR and BP keep MAP>65mmHg On Aspirin 81 mg daily. Increase Hydralazine 100mg Q8, Lopressor 50mg Q12 , On Norvasc 5mg daily. Echo showed EF 65-70Z% : Monitor renal function, I's and O's, and avoid nephrotoxins. Cr: 1.65 today from 1.73, on Lasix 20mg IV daily. GI: On PO heart healthy diet US Liver: Tiny echogenic foci measuring 5 mm in the right kidney. 2. Small bilateral pleural effusions. The liver is unremarkable in appearance ID: Continue Rocephin 1gram daily. Monitor for signs of infections ( Fever, WBC) Endo: SSI with Accu-Cheks for glycemic control. TSH: 1.0 Heme: Monitor CBC. GI prophylaxis with Protonix 40 mg daily and DVT prophylaxis with SCDs and heparin subcu. Will sign off and transfer care to [facility] Level 2 Donavon Reeder MD Feb 06, 2017 08:13
[2017-02-06] MEDS: amLODIPine BESYLATE 5 MG TAB PO SCH ×3 (08:47→09:00)
[2017-02-06] MEDS: FUROSEMIDE 40 MG/4 ML VIAL IV PUSH SCH (08:47)
[2017-02-06] MEDS: PANTOPRAZOLE SODIUM 40 MG VIAL IV PUSH SCH (08:47)
[2017-02-06] MEDS: METOPROLOL TARTRATE 50 MG TAB PO SCH ×2 (08:48→21:33)
[2017-02-06] MEDS: DOCUSATE SODIUM 50 MG/SENNA 8.6 MG TAB PO SCH ×2 (08:48→21:33)
[2017-02-06] MEDS: ASPIRIN 81 MG CHEW TAB CHEW SCH (08:48)
[2017-02-06] MEDS: cefTRIAXone INJ 1,000 MG in SODIUM CHLORIDE 0.9% INJ 100 ML IV SCH (08:48)
[2017-02-06] MEDS: hydrALAZINE HCL 20 MG/ML VIAL IV PUSH PRN (13:04)
[2017-02-06] MEDS: hydrALAZINE HCL 100 MG TAB PO SCH ×2 (16:36→21:33)
[2017-02-07] VITALS (8 sets, daily range): BP systolic 135–176; BP diastolic 70–93; PULSE 57–68; RESP 18–21; TEMP 97.2–97.7; O2SAT 93–98
[2017-02-07] MEDS: hydrALAZINE HCL 20 MG/ML VIAL IV PUSH PRN (00:36)
[2017-02-07] MEDS: INSULIN NovoLIN REGULAR SUPPLEMENTAL SCALE SQ SCH ×6 (03:00→22:00)
[2017-02-07] MEDS: CHLORHEXIDINE GLUCONATE 2 % 1 PACK (2 CLOTHS) TOP SCH (04:00)
[2017-02-07] MEDS: HEPARIN SODIUM - SQ 10,000 UNITS/ML VIAL SQ SCH ×2 (04:13→16:54)
[2017-02-07] MEDS: hydrALAZINE HCL 100 MG TAB PO SCH (05:41)
[2017-02-07 08:31] LABS: AUTOMATED NEUTROPHIL # 8.2 TH/MM3 (1.8-7.7); BASOPHIL % 0.3 % (0.0-2.0); EOSINOPHIL # 0.1 TH/MM3 (0-0.4); EOSINOPHIL % 0.9 % (0.0-4.0); HEMATOCRIT 30.1 % (39.0-51.0); HEMO FLAGS DIFF FINAL; LYMPH % 17.2 % (9.0-44.0); LYMPHOCYTE # 1.9 TH/MM3 (1.0-4.8); MEAN CELL VOLUME 91.4 FL (80.0-100.0); MEAN CORPUSCULAR HGB CONC 32.8 % (32.0-36.0); MONO % 8.2 % (0.0-8.0); NEUT % 73.4 % (16.0-70.0); PLATELET COUNT 352 TH/MM3 (150-450); RED BLOOD COUNT 3.29 MIL/MM3 (4.50-5.90); RED CELL DISTRIBUTION WIDTH 14.9 % (11.6-17.2); WHITE BLOOD COUNT 11.1 TH/MM3 (4.0-11.0)
[2017-02-07] MEDS ORDERED: amLODIPine BESYLATE 5 MG TAB PO SCH (09:00)
[2017-02-07 09:19] LABS: BICARBONATE 23.4 MEQ/L (21.0-32.0); POTASSIUM 4.1 MEQ/L (3.5-5.1)
[2017-02-07] MEDS ORDERED: amLODIPine BESYLATE 5 MG TAB PO ONE (10:15)
[2017-02-07] MEDS: SODIUM CHLORIDE 0.9% FLUSH 10 ML FLUSH IVF PRN ×2 (10:44→20:45)
[2017-02-07] MEDS: FUROSEMIDE 40 MG/4 ML VIAL IV PUSH SCH (10:45)
[2017-02-07] MEDS: ASPIRIN 81 MG CHEW TAB CHEW SCH (10:46)
[2017-02-07] MEDS: DOCUSATE SODIUM 50 MG/SENNA 8.6 MG TAB PO SCH ×2 (10:46→20:45)
[2017-02-07] MEDS: METOPROLOL TARTRATE 50 MG TAB PO SCH (10:46)
--- NOTE | 2017-02-07 10:47 | HHI.PR ---
Subjective Remarks The patient said that he was feeling better. He still said he was short of breath and couldn't talk in complete sentences at this time. He says the swelling in his extremities has decreased. He has been ambulating. He says he thinks he needs to be back on his lisinopril. Looking forward to going home soon. Objective Vitals Vital Signs Date Time Temp Pulse Resp B/P (MAP) Pulse Ox O2 Delivery O2 Flow Rate FiO2 02/07/17 08:00 97.2 57 18 159/80 (106) 94 02/07/17 04:28 Room Air 02/07/17 04:00 97.4 60 21 154/81 (105) 94 02/07/17 01:49 Room Air 02/07/17 01:00 170/70 (103) 02/07/17 00:00 97.7 68 18 162/82 (108) 93 02/06/17 22:45 97.4 64 19 167/83 (111) 94 02/06/17 22:00 71 02/06/17 20:00 57 02/06/17 20:00 98.4 57 19 157/78 (104) 93 02/06/17 18:00 68 02/06/17 16:00 57 02/06/17 16:00 97.7 57 12 163/90 (114) 93 02/06/17 15:00 62 02/06/17 14:00 57 02/06/17 12:00 97.8 57 16 154/95 (114) 96 02/06/17 12:00 57 I/O 02/06/17 02/06/17 02/06/17 02/07/17 02/07/17 02/07/17 07:00 15:00 23:00 07:00 15:00 23:00 Intake Total 150 ml 720 ml 240 ml Output Total 450 ml 2460 ml 550 ml Balance -300 ml -1740 ml -310 ml Intake Oral 150 ml 720 ml 240 ml Output Urine Total 450 ml 2460 ml 550 ml # Bowel Movements 1 2 0 Result Diagram: 02/07/1720 02/07/1720 Imaging Last Impressions Chest X-Ray 02/04/17 0000 Signed Impressions: Service Date/Time: Saturday, February 04, 2017 08:26 - CONCLUSION: No significant change mild bibasilar airspace disease. Abdirahman Miramontes MD Liver Ultrasound 02/02/17 0000 Signed Impressions: Service Date/Time: Thursday, February 02, 2017 14:43 - CONCLUSION: 1. Tiny echogenic foci measuring 5 mm in the right kidney. 2. Small bilateral pleural effusions. 3. The liver is unremarkable in appearance. 4. That is post cholecystectomy. Mahendra Palacios MD Objective Remarks GENERAL: Resting comfortably. SKIN: Warm and dry. HEAD: Normocephalic. EYES: No scleral icterus. No injection or drainage. NECK: Supple, trachea midline. No JVD or lymphadenopathy. CARDIOVASCULAR: Regular rate and rhythm without murmurs, gallops, or rubs. RESPIRATORY: CTAB. GASTROINTESTINAL: Abdomen soft, non-tender, nondistended. MUSCULOSKELETAL: No cyanosis, or edema. NEURO: No gross deficits. PSYCH: Mood and affect appropriate. Medications and IVs Current Medications Medications (Trade) Dose Ordered Sig/Cinthia Route Start Time Stop Time Status Last Admin (NS Flush) 2 ml UNSCH PRN IVF 02/02/17 12:45 (Duoneb Neb) 1 ampule Q2HR NEB PRN INH 02/02/17 14:30 (Heparin Inj) 5,000 units Q12H SQ 02/02/17 15:00 02/07/17 04:13 Miscellaneous Information 1 Q361D XX 02/02/17 14:30 (Chlorhexidine 2% Cloth) 3 pack Taper DAILY@04 TOP 02/03/17 04:00 01/30/18 03:59 02/05/17 04:00 (Chlorhexidine 2% Cloth) 3 pack UNSCH PRN TOP 02/02/17 14:30 (Cristine-Colace) 1 tab BID PO 02/02/17 21:00 02/06/17 21:33 (Milk Of Magnesia Liq) 30 ml Q12H PRN PO 02/02/17 14:30 (Senokot) 17.2 mg Q12H PRN PO 02/02/17 14:30 (Dulcolax Supp) 10 mg DAILY PRN RECTAL 02/02/17 14:30 (Lactulose Liq) 30 ml DAILY PRN PO 02/02/17 14:30 (D50w (Vial) Inj) 50 ml UNSCH PRN IV PUSH 02/02/17 14:45 (Glucagon Inj) 1 mg UNSCH PRN OTHER 02/02/17 14:45 (NovoLIN R SUPPLEMENTAL SCALE) 1 Q4H SQ 02/02/17 15:00 02/06/17 22:14 (Aspirin Chew) 81 mg DAILY CHEW 02/02/17 15:00 02/06/17 08:48 (Nitrostat Sl) 0.4 mg Q5M PRN SL 02/02/17 23:30 02/02/17 23:57 (Morphine Inj) 2 mg Q4H PRN IV PUSH 02/03/17 00:45 02/04/17 07:13 Ceftriaxone Sodium 1000 mg/ Sodium Chloride 100 ml @ 200 mls/hr Q24H IV 02/04/17 09:00 02/06/17 08:48 (Tylenol) 650 mg Q6H PRN PO 02/04/17 10:00 02/05/17 21:02 (Zofran Inj) 4 mg Q8HR PRN IV PUSH 02/04/17 10:00 02/05/17 21:00 (Lasix Inj) 20 mg DAILY IV PUSH 02/06/17 09:00 02/06/17 08:47 (Lopressor) 50 mg Q12HR PO 02/05/17 09:00 02/06/17 21:33 (Tears Naturale Opth Soln) 1 drop Q6H PRN EACH EYE 02/05/17 14:45 02/05/17 16:09 (Apresoline) 100 mg Q8HR PO 02/06/17 14:00 02/07/17 05:41 (Norvasc) 10 mg DAILY PO 02/08/17 09:00 UNV (Norvasc) 5 mg ONCE ONCE PO 02/07/17 10:15 02/07/17 10:16 UNV A/P Assessment and Plan Acute respiratory failure Secondary to pulmonary edema and possibly pneumonia. Chest x-ray with bilateral infiltrates. - Oxygen and nebs as needed. - s/p Solumederol 40mg Q6 x 4 doses. - Encourage ambulation. - Continue diuresing with IV Lasix. - continue IV ceftriaxone. Hypertensive emergency/ Acute diastolic CHF Blood pressure was 227/114 on admission. S/p Cardene gtt. Appears euvolemic. Blood pressure is improved. Echo with EF 65-70%. BNP markedly elevated. Stress test this year was negative. - increase amlodipine to 10 mg daily. Continue hydralazine 100mg Q8 and Lopressor 50mg Q12. - continue ASA. - Vasotec as needed. - cardiology consult requested. - check a lipid profile. Acute renal failure Exacerbated by diuresis. - Continue Lasix 20 mg IV daily and follow BMP. - Avoid nephrotoxic agents. Anemia Hemoglobin is well below baseline. - Check iron studies, B12 and folate levels. - Also check Hemoccult. - Follow CBC. DM Glucose is well-controlled at this time. - Continue insulin sliding scale. - check a hgbA1c. PPx: Heparin Discharge Planning Awaiting cardiology eval. Anticipate d/c home in 1-2 days Mahendra Heck DO Feb 07, 2017 10:47
[2017-02-07] MEDS: cefTRIAXone INJ 1,000 MG in SODIUM CHLORIDE 0.9% INJ 100 ML IV SCH (10:53)
[2017-02-07 11:47] LABS: TRANSFERRIN IRON PROFILE 210 MG/DL (200-360)
[2017-02-07 12:12] LABS: FERRITIN 383 NG/ML (26-388)
[2017-02-07] MEDS ORDERED: hydrALAZINE HCL 50 MG TAB PO PRN (13:00)
--- NOTE | 2017-02-07 13:22 | MB ---
cc: TEE LOZANO DATE OF CONSULTATION 02/07/2017 REASON FOR CONSULTATION Hypertensive urgency. HISTORY OF PRESENT ILLNESS This is a very nice 66-year-old gentleman who has a prior history of coronary disease with percutaneous intervention, diastolic congestive heart failure, diabetes and hypertension who follows at the [facility] for routine medical care. He presented with progressive shortness of breath, was noted to have a systolic blood pressure of greater than 220 mmHg systolic in the emergency department in addition to pulmonary edema on chest x-ray. He was started on a Cardene drip in addition to BiPAP. Over the course of his hospitalization, he has symptomatically improved. He still had some fluctuating blood pressures and changing his medical regimen in order to get better control. We were consulted for further recommendations. PAST MEDICAL HISTORY 1. Coronary disease with prior percutaneous intervention o 2. Congestive heart failure with preserved ejection fraction 3. Diabetes 4. Hypertension ALLERGIES NO KNOWN DRUG ALLERGIES. SOCIAL HISTORY Smokes about 10-15 cigarettes a day. FAMILY HISTORY Denies any family history of early coronary disease or sudden cardiac . MEDICATIONS AT HOME 1. Aspirin 2. Atenolol 3. Metformin 4. Zoloft REVIEW OF SYSTEMS A 12-point review of some was performed a unless otherwise as noted in the history of present illness. PHYSICAL EXAMINATION VITAL SIGNS: Temperature 97, heart rate 60, blood pressure 135/81 mmHg. GENERAL: Alert and oriented x3 in no acute distress. HEENT: Exam shows pupils reactive to light and accommodation. Extraocular movements are intact. NECK: No elevation in venous distension. No thyromegaly. No lymphadenopathy. No carotid bruits. LUNGS: Clear to auscultation bilaterally. CARDIOVASCULAR: Regular rate and rhythm without murmurs, rubs, or gallops. ABDOMEN: Nontender and nondistended with good bowel sounds. No hepatosplenomegly. EXTREMITIES: Show no clubbing, cyanosis or edema. Good peripheral pulses. NEUROLOGIC: Cranial nerves intact. Motor and sensory grossly intact. LABORATORY DATA WBC 11.1, hemoglobin 9.9, platelet count 352, INR is 1.1. Sodium 139, potassium 4.1, BUN 50, creatinine is 1.24. ASSESSMENT 1. Hypertensive urgency. 2. History of congestive heart failure, pulmonary edema. 3. Diabetes 4. Coronary disease PLAN The patient's blood pressure looks better now. Symptomatically he is doing much better. His heart failure is likely secondary to flash pulmonary edema induced by severe hypertension. We will adjust his regimen. I want to change him from Metoprolol to carvedilol which has a little better blood pressure control and will not make him bradycardic as the metoprolol will. I am going to add Lisinopril back to his regimen. His creatinine is stable. He is already on amlodipine. If he still has difficulty controlling his blood pressure, hydrochlorothiazide may be another consideration. I am going to change his hydralazine from [id number] dosing to it as needed. When he goes home, he will be on a basal regimen of likely beta-camryn, CLARA inhibitor, amlodipine and he can check his blood pressure twice a day. If his blood pressures is greater than 160, he can take an additional p.r.n. dose of hydralazine 50 mg a day. His echocardiogram showed a normal ejection fraction. He can follow up with his primary care doctor. He does not have any chest pain symptoms. If there are any questions, feel free to give me a call, otherwise I will sign off. MD MAGDA Morales/FEMI /1:03 PM /1:12 PM
[2017-02-07 13:56] LABS: HEMOGLOBIN A1a 1.1 %; HEMOGLOBIN A1b 2.1 %; HEMOGLOBIN Ao 82.8 %; HEMOGLOBIN LA1C 2.4 %; HEMOGLOBIN P3 6.2 %
[2017-02-07] MEDS: CARVEDILOL 12.5 MG TAB PO SCH (20:45)
[2017-02-07] MEDS: LISINOPRIL 20 MG TAB PO SCH (20:45)
[2017-02-08] VITALS: BP 160/76; PULSE 62; RESP 20; TEMP 97.3; O2SAT 94
[2017-02-08] MEDS: HEPARIN SODIUM - SQ 10,000 UNITS/ML VIAL SQ SCH (02:39)
[2017-02-08] MEDS: INSULIN NovoLIN REGULAR SUPPLEMENTAL SCALE SQ SCH ×2 (02:40→06:23)
[2017-02-08 04:00] VITALS: BP 158/62; PULSE 66; RESP 19; TEMP 97.6; O2SAT 96
[2017-02-08] MEDS: CHLORHEXIDINE GLUCONATE 2 % 1 PACK (2 CLOTHS) TOP SCH (04:00)
[2017-02-08 07:25] LABS: HEMATOCRIT 29.7 % (39.0-51.0); MEAN CELL VOLUME 91.3 FL (80.0-100.0); MEAN CORPUSCULAR HEMOGLOBIN 29.7 PG (27.0-34.0); MEAN CORPUSCULAR HGB CONC 32.5 % (32.0-36.0); PLATELET COUNT 320 TH/MM3 (150-450); RED BLOOD COUNT 3.26 MIL/MM3 (4.50-5.90); RED CELL DISTRIBUTION WIDTH 14.7 % (11.6-17.2); REVIEW FLAG FINAL; WHITE BLOOD COUNT 8.9 TH/MM3 (4.0-11.0)
[2017-02-08 07:50] LABS: BICARBONATE 25.7 MEQ/L (21.0-32.0); MAGNESIUM 2.1 MG/DL (1.5-2.5); POTASSIUM 3.8 MEQ/L (3.5-5.1)
[2017-02-08 08:00] VITALS: BP_SYST 176; BP_SYST 177; BP_DIAS 96; BP_DIAS 99; PULSE 63; RESP 20; TEMP 97.9; O2SAT 95
[2017-02-08] MEDS: CARVEDILOL 12.5 MG TAB PO SCH (08:22)
[2017-02-08] MEDS: DOCUSATE SODIUM 50 MG/SENNA 8.6 MG TAB PO SCH (08:22)
[2017-02-08] MEDS: FUROSEMIDE 40 MG/4 ML VIAL IV PUSH SCH (08:22)
[2017-02-08] MEDS: cefTRIAXone INJ 1,000 MG in SODIUM CHLORIDE 0.9% INJ 100 ML IV SCH (08:23)
[2017-02-08] MEDS: ASPIRIN 81 MG CHEW TAB CHEW SCH (08:23)
[2017-02-08] MEDS: LISINOPRIL 20 MG TAB PO SCH (08:23)
[2017-02-08] MEDS ORDERED: AMLO10 PO (10:03)
[2017-02-08] MEDS ORDERED: LISI-515 PO (10:03)
[2017-02-08] MEDS ORDERED: NITR0.4S SL (10:03)
[2017-02-08] MEDS ORDERED: CEFU1TAB20 PO (10:03)
[2017-02-08] MEDS ORDERED: HYDR-3800 PO (10:03)
[2017-02-08] MEDS ORDERED: CARV12.5 PO (10:03)
--- NOTE | 2017-02-08 10:03 | HHI.DCPOC ---
Discharge Care Plan Diagnosis: (1) Hypertensive emergency (2) Acute pulmonary edema (3) Hx of coronary artery disease Goals to Promote Your Health * To prevent worsening of your condition and complications * To maintain your health at the optimal level Directions to Meet Your Goals Take your medications as prescribed Follow your dietary instruction Follow activity as directed Keep your appointments as scheduled Take your immunizations and boosters as scheduled If your symptoms worsen call your PCP, if no PCP go to Urgent Care Center or Emergency Room Smoking is Dangerous to Your Health. Avoid second hand smoke Call the 24-hour hour crisis hotline for domestic abuse at Mahendra Heck DO Feb 08, 2017 10:03
--- NOTE | 2017-02-08 10:07 | HHI.DS ---
Discharge Summary Admission Date Feb 02, 2017 at 14:40 Discharge Date: Feb 08, 2017 Admitting Diagnosis Flash Pulmonary Edema, Hypoxic Respiratory failure. (1) Hypertensive emergency ICD Code: I16.1 - Hypertensive emergency Diagnosis: Principal Status: Acute (2) Acute pulmonary edema ICD Code: J81.0 - Acute pulmonary edema Diagnosis: Principal Status: Acute (3) Hx of coronary artery disease ICD Code: Z86.79 - Personal history of other diseases of the circulatory system Status: Acute Procedures None Brief History - From Admission The patient is a 66-year-old male with past medical history of coronary artery disease with previous stents, CHF, diabetes mellitus, hypertension, who presented to [facility] ED with a two-day history of progressive worsening shortness of breath. In addition, the patient reports a productive cough with yellow phlegm and edema of his ankles. The patient also reports orthopnea, however, he denies any PND, nausea or vomiting. 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 The patient is an active smoker where he smokes 10-15 cigarettes per day and has been a smoker for over 50 years. He denies any use of oxygen or bronchodilators at home. On arrival to the ED he was hypertensive with a blood pressure 227/114. Chest x-ray in the ER showed bilateral alveolar infiltrates consistent with pulmonary edema. His laboratory data is significant for elevated BNP at 1528, troponin 0.03 and creatinine 1.37. In the ED he was placed on a Cardene drip and BiPAP. His current blood pressure is 140/83 with saturation 93% and pulse 64. CBC/BMP: 02/08/17 0620 02/08/17 0620 Significant Findings Laboratory Tests Test 02/06/17 05:00 02/07/17 07:20 02/08/17 06:20 White Blood Count 13.3 TH/MM3 (4.0-11.0) 11.1 TH/MM3 (4.0-11.0) Red Blood Count 3.09 MIL/MM3 (4.50-5.90) 3.29 MIL/MM3 (4.50-5.90) 3.26 MIL/MM3 (4.50-5.90) Hemoglobin 9.2 GM/DL (13.0-17.0) 9.9 GM/DL (13.0-17.0) 9.7 GM/DL (13.0-17.0) Hematocrit 28.2 % (39.0-51.0) 30.1 % (39.0-51.0) 29.7 % (39.0-51.0) Neutrophils (%) (Auto) 74.9 % (16.0-70.0) 73.4 % (16.0-70.0) Neutrophils # (Auto) 9.9 TH/MM3 (1.8-7.7) 8.2 TH/MM3 (1.8-7.7) Blood Urea Nitrogen 61 MG/DL (7-18) 50 MG/DL (7-18) 39 MG/DL (7-18) Creatinine 1.65 MG/DL (0.60-1.30) Calcium Level 8.4 MG/DL (8.5-10.1) 8.3 MG/DL (8.5-10.1) 8.0 MG/DL (8.5-10.1) Sodium Level 134 MEQ/L (136-145) Estimat Glomerular Filtration Rate 42 ML/MIN (>89) 59 ML/MIN (>89) 60 ML/MIN (>89) Monocytes (%) (Auto) 8.2 % (0.0-8.0) Random Glucose 112 MG/DL (74-106) Hemoglobin A1c 6.4 % (4.3-6.0) Iron Level 59 MCG/DL (65-175) Imaging Last Impressions Chest X-Ray 02/04/17 0000 Signed Impressions: Service Date/Time: Saturday, February 04, 2017 08:26 - CONCLUSION: No significant change mild bibasilar airspace disease. Abdirahman Miramontes MD Liver Ultrasound 02/02/17 0000 Signed Impressions: Service Date/Time: Thursday, February 02, 2017 14:43 - CONCLUSION: 1. Tiny echogenic foci measuring 5 mm in the right kidney. 2. Small bilateral pleural effusions. 3. The liver is unremarkable in appearance. 4. That is post cholecystectomy. Mahendra Palacios MD PE at Discharge GENERAL: Resting comfortably. SKIN: Warm and dry. HEAD: Normocephalic. EYES: No scleral icterus. No injection or drainage. NECK: Supple, trachea midline. No JVD or lymphadenopathy. CARDIOVASCULAR: Regular rate and rhythm without murmurs, gallops, or rubs. RESPIRATORY: CTAB. GASTROINTESTINAL: Abdomen soft, non-tender, nondistended. MUSCULOSKELETAL: No cyanosis, or edema. NEURO: No gross deficits. PSYCH: Mood and affect appropriate. Pt update on day of discharge The patient was feeling well and eager to go home. He said that he will avoid eating foods high in salt. He has been ambulating. Discussed with nursing. Hospital Course Acute respiratory failure Secondary to pulmonary edema and possibly pneumonia. Chest x-ray with bilateral infiltrates. He required BiPAP initially and was monitored in the ICU. S/p Solumedrol 40mg Q6 x 4 doses. He was weaned off of BiPAP. He received nebs standing and as needed. We encouraged ambulation. We continued to diurese the pt with IV Lasix. He received IV ceftriaxone. He was weaned to room air. Lasix was discontinued. He will follow up with his PCP. Hypertensive emergency/ Acute diastolic CHF Blood pressure was 227/114 on admission. S/p Cardene gtt. Echo with EF 65-70%. BNP markedly elevated. Stress test this year was negative. Cardiology was consulted. We increased amlodipine to 10 mg daily. We started lisinopril 20 mg BID and Coreg 12.5 mg BID. He will take hydralazine as needed. He will continue ASA. He will follow up with cardiology as an outpt. Acute renal failure Exacerbated by diuresis. Improved. Lasix will be discontinued as the pt appears euvolemic. He will take Lasix as needed. Anemia Iron studies, B12 and folate levels were checked. His CBC remained stable. He will follow up with his PCP. DM A1c was 6.4%. He will resume his home metformin upon discharge. Pt Condition on Discharge: Stable Discharge Disposition: Discharge Home Discharge Time: > 30 minutes Discharge Instructions DIET: Follow Instructions for: Heart Healthy Diet Activities you can perform: Regular-No Restrictions Follow up Referrals: Cardiology - 1 Week PCP Follow-up - 02/09/17 New Medications: Cefuroxime (Cefuroxime) 500 Mg Tab 500 MG PO BID for Infection, #6 TAB 0 Refills Furosemide (Lasix) 20 Mg Tab 20 MG PO DAILY PRN for leg swelling/ weight gain, #30 TAB 0 Refills Amlodipine (Norvasc) 10 Mg Tab 10 MG PO DAILY for Blood Pressure Management, #30 TAB Carvedilol (Coreg) 12.5 Mg Tab 12.5 MG PO Q12HR for Blood Pressure Management, #60 TAB Hydralazine HCl (Hydralazine HCl) 50 Mg Tablet 50 MG PO Q8H PRN for SBP>160, DBP>90, #30 TAB Lisinopril (Lisinopril) 20 Mg Tab 20 MG PO BID for Blood Pressure Management, #60 TAB Nitroglycerin SL (Nitrostat SL) 0.4 Mg Subl 0.4 MG SL Q5M PRN for CHEST PAIN, #30 TAB Continued Medications: Aspirin (Aspirin) 81 Mg Chew 81 MG CHEW DAILY, TAB 0 Refills Metformin (Metformin) 1,000 Mg Tab 1000 MG PO BIDPC for Blood Sugar Management, #60 TAB 0 Refills With meals Sertraline (Zoloft) 25 Mg Tab 25 MG PO DAILY, #30 TAB 0 Refills Discontinued Medications: Atenolol (Atenolol) 25 Mg Tab 12.5 MG PO DAILY for Blood Pressure Management, #30 TAB 0 Refills Mahendra Heck DO Feb 08, 2017 10:07
[2017-02-08] MEDS ORDERED: FURO1TAB62 PO (10:14)
[2017-02-08 10:15] VITALS: PULSE 61
[2017-02-08] MEDS ORDERED: LISINOPRIL 20 MG TAB PO ONE (10:45)
== END 2017-02-08 12:03 | disposition home or self-care (01) | DRG 291 ==
LOC: NEPE 12:29 → NEDA 14:40 → HIMN 16:10 → N04B 02-06 22:45
PROVIDERS: ADMIT Hospitalist; ATTEND Hospitalist
PROC: 5A09457 Assistance with Respiratory Ventilation, 24-96 Consecutive Hours, Continuous Positive Airway Pressure (ICD-10-PCS; principal; 2017-02-02)
DX: I11.0 Hypertensive heart disease with heart failure (principal); J96.01 Acute respiratory failure with hypoxia; N17.9 Acute kidney failure, unspecified; J18.9 Pneumonia, unspecified organism; J44.0 Chronic obstructive pulmonary disease with (acute) lower respiratory infection; N39.0 Urinary tract infection, site not specified; I16.1 Hypertensive emergency; I50.33 Acute on chronic diastolic (congestive) heart failure; D64.9 Anemia, unspecified; I25.10 Atherosclerotic heart disease of native coronary artery without angina pectoris; E11.9 Type 2 diabetes mellitus without complications; I25.2 Old myocardial infarction; F17.210 Nicotine dependence, cigarettes, uncomplicated; Z90.49 Acquired absence of other specified parts of digestive tract; Z95.5 Presence of coronary angioplasty implant and graft; Z79.84 Long term (current) use of oral hypoglycemic drugs
CPT/HCPCS: 36600; 71010; 76705; 80048; 80053; 80061; 81001; 82550; 82607; 82728; 82746; 82805; 82948; 83036; 83540; 83550; 83735; 83880; 84443; 84484; 85025; 85027; 85610; 85730; 87070; 87086; 87205; 87641; 93005; 93306; 94002; 94003; 94640; 94664; 96365; C9113; J0360; J0696; J1644; J1940; J2270; J2405; J2920; J7050

== ENCOUNTER 2017-06-30 21:59 | Emergency (ER) | payer OTHER ==
[~2017-06-30] VITALS: Ht 172.7 cm; Wt 91.0 kg
[~2017-06-30 21:59] MED LIST changes: +AMLO10 PO; -ATEN25TA PO; +CARV12.5 PO; +CEFU1TAB20 PO; +FURO1TAB62 PO; +HYDR-3800 PO; +NITR0.4S SL; +ZOLO25TA PO
[2017-06-30 22:18] VITALS: BP 140/75; PULSE 88; RESP 18; TEMP 98.6; O2SAT 99
--- NOTE | 2017-06-30 22:56 | PD ---
HPI Chief Complaint: Back/ Neck Pain or Injury Time Seen by Provider: 22:55 Travel History International Travel<30 days: No Contact w/Intl Traveler<30days: No Traveled to known affect area: No History of Present Illness HPI 66-year-old male with long-standing history of low back pain since having surgery in 1987, presents emergency department for evaluation of exacerbation of low back pain. Patient states he is working out in the yard 2 days ago when he believes he may have pulled it. He states he feels like something is " moving in his lower back." He has pain radiating to his bilateral legs. No saddle paresthesia, no loss of bowel or bladder, no lower extremity weakness. Patient has no other symptoms to report. PFSH Past Medical History Depression: Yes Cardiac Catheterization: Yes (X2, 4 stents) Cardiovascular Problems: Yes Chest Pain: Yes Congestive Heart Failure: Yes Diabetes: Yes Endocrine: Yes Genitourinary: No Hypertension: Yes Immune Disorder: No Musculoskeletal: Yes Neurologic: Yes Psychiatric: Yes Reproductive: No Respiratory: Yes Immunizations Current: Yes Myocardial Infarction: Yes Sleep Apnea: Yes (Uses CPAP machine at home) Past Surgical History Abdominal Surgery: Yes Cardiac Surgery: Yes Cholecystectomy: Yes Ear Surgery: No Endocrine Surgery: No Eye Surgery: No Genitourinary Surgery: No Gynecologic Surgery: No Neurologic Surgery: Yes (L5 L6 fusion) Oral Surgery: No Thoracic Surgery: Yes Social History Alcohol Use: No Tobacco Use: Yes (1/2 ppd) Substance Use: Yes (marijuana when he was a teenager) Allergies-Medications (Allergen,Severity, Reaction): Coded Allergies: bee venom protein (honey bee) (Verified Allergy, Severe, Swelling, 06/30/17 ) Reported Meds & Prescriptions Reported Meds & Active Scripts Active Robaxin (Methocarbamol) 500 Mg Tab 500 Mg PO QID PRN Lasix (Furosemide) 20 Mg Tab 20 Mg PO DAILY PRN Cefuroxime (Cefuroxime Axetil) 500 Mg Tab 500 Mg PO BID Lisinopril 20 Mg Tab 20 Mg PO BID Norvasc (Amlodipine Besylate) 10 Mg Tab 10 Mg PO DAILY Coreg (Carvedilol) 12.5 Mg Tab 12.5 Mg PO Q12HR Nitrostat SL (Nitroglycerin) 0.4 Mg Subl 0.4 Mg SL Q5M PRN Hydralazine HCl 50 Mg Tablet 50 Mg PO Q8H PRN Reported Zoloft (Sertraline HCl) 25 Mg Tab 25 Mg PO DAILY Aspirin 81 Mg Chew 81 Mg CHEW DAILY Metformin (Metformin HCl) 1,000 Mg Tab 1,000 Mg PO BIDPC With meals Review of Systems Except as stated in HPI: all other systems reviewed are Neg Physical Exam Narrative GENERAL: Well-nourished, well-developed male patient, ambulatory with a non- ataxic gait, no acute distress. SKIN: Focused skin assessment warm/dry. HEAD: Normocephalic. EYES: No scleral icterus. No injection or drainage. NECK: Supple, trachea midline. No JVD or lymphadenopathy. CARDIOVASCULAR: Regular rate and rhythm without murmurs, gallops, or rubs. RESPIRATORY: Breath sounds equal bilaterally. No accessory muscle use. GASTROINTESTINAL: Abdomen soft, non-tender, nondistended. MUSCULOSKELETAL: No cyanosis, or edema. 5+ strength equal bilateral lower extremities. BACK: Nontender without obvious deformity. No CVA tenderness. Data Data Last Documented VS Vital Signs Date Time Temp Pulse Resp B/P (MAP) Pulse Ox O2 Delivery O2 Flow Rate FiO2 06/30/17 22:18 98.6 88 18 140/75 (96) 99 Orders Orders Spine, Lumbar - Ltd (Ap & Lat) (06/30/17 ) Ed Discharge Order (06/30/17 23:48) Ibuprofen (Motrin) (07/01/17 00:00) MDM Medical Decision Making Medical Screen Exam Complete: Yes Emergency Medical Condition: Yes Medical Record Reviewed: Yes Differential Diagnosis Lumbar strain versus discogenic pain versus radiculopathy versus fracture Narrative Course 66-year-old male presents emergency department for evaluation of exacerbation of low back pain. Patient has no focal deficits or weakness. X-ray imaging confirms no acute bony abnormality. Patient is diabetic so I will not be giving him any steroids. Patient will be discharged home, instructed to wear his brace as he already has, and to follow-up with his primary care provider. Patient agrees to return immediately with any acute worsening symptoms. Diagnosis Primary Impression: Chronic back pain Qualified Codes: M54.42 - Lumbago with sciatica, left side; M54.41 - Lumbago with sciatica, right side; G89.29 - Other chronic pain Referrals: Pain Management Primary Care Physician Patient Instructions: Back Pain (ED), General Instructions Additional Instructions: FOLLOW UP WITH A PRIMARY CARE PROVIDER WEAR BRACE THAT YOU ALREADY HAVE OUTPT MRI MAY BE WARRANTED RETURN TO ED WITH ACUTE WORSENING OF SYMPTOMS Med/Other Pt SpecificInfo: Prescription(s) given Scripts Methocarbamol (Robaxin) 500 Mg Tab 500 MG PO QID Y for MUSCLE SPASM, #20 TAB 0 Refills Prov: Susie Scott 06/30/17 Disposition: 01 DISCHARGE HOME Condition: Stable Susie Scott Jun 30, 2017 22:56
--- NOTE | 2017-06-30 23:42 | RADRPT ---
EXAM DATE/TIME: 06/30/2017 23:16 [facility] COMPARISON: No previous studies available for comparison. INDICATIONS : Low back pain with radiating pain down both legs. MEDICAL HISTORY : Hypertension. Myocardial infarction. Diabetes mellitus type II. SURGICAL HISTORY : Cholecystectomy. Lumbar fusion ENCOUNTER: Initial ACUITY: 1 day PAIN SCORE: 8/10 LOCATION: middle Back FINDINGS: There is mild scoliotic deformity convex to the left. There is multilevel disc space narrowing and ma rginal osteophyte formation maximal at L2-L3. There is no evidence of acute fracture. Bony mineraliza tion is normal. There is facet arthritis maximal L5-S1. CONCLUSION: 1. Moderate degenerative changes as described above. There is no evidence of acute fracture. Artis Madera MD on June 30, 2017 at 23:39 Board Certified Radiologist. This report was verified electronically.
[2017-06-30] MEDS ORDERED: ROBA500T PO (23:50)
[2017-07-01] MEDS ORDERED: IBUPROFEN 800 MG TAB PO ONE
== END 2017-07-01 00:04 | disposition home or self-care (01) ==
LOC: NEPD 21:59
DX: M54.41 Lumbago with sciatica, right side (principal); M54.42 Lumbago with sciatica, left side; G89.29 Other chronic pain; Y93.H2 Activity, gardening and landscaping; I11.0 Hypertensive heart disease with heart failure; I50.9 Heart failure, unspecified; I25.2 Old myocardial infarction; E11.9 Type 2 diabetes mellitus without complications; F17.210 Nicotine dependence, cigarettes, uncomplicated; F32.9 Major depressive disorder, single episode, unspecified; Z79.84 Long term (current) use of oral hypoglycemic drugs; Z79.899 Other long term (current) drug therapy
CPT/HCPCS: 72100; 99283